=== PATIENT | male | born 1975 | race Caucasian/White ===

== ENCOUNTER 2016-08-20 23:20 | Emergency (ER) | payer OTHER ==
[~2016-08-20] VITALS: Ht 176.5 cm; Wt 74.8 kg
[~2016-08-20 23:20] MED LIST: /PANT40TA OR; /TAMS4CA OR; ACET65TA OR; KETO-28 OR; LEVA500T OR; TRAM50TA2 OR; TYLENOL #3 OR; ZOFR8TAB OR
[2016-08-21] MEDS ORDERED: ASPIRIN 325 MG TAB PO ONE
[2016-08-21 00:18] LABS: BASO % 0.5 % (0.0-1.0); EOS # 0.3 K/mm3 (0.0-0.50); EOS % 4.5 % (0.0-3.0); LARGE UNSTAINED CELL # 0.1 K/mm3 (0.0-0.4); LARGE UNSTAINED CELL % 1.9 % (0.0-4.0); LYMPH # 2.9 K/mm3 (1.5-4.5); LYMPH % 39.9 % (24.0-44.0); MEAN CORPUSCULAR HEMOGLOBIN 31.5 pg (27.0-33.0); MEAN CORPUSCULAR HGB CONC 33.8 g/dl (32.0-36.5); MEAN CORPUSCULAR VOLUME 93.1 fl (80.0-96.0); MONO # 0.4 K/mm3 (0.0-0.8); NEUTROPHILS # 3.3 K/mm3 (1.8-7.7); NEUTROPHILS % 47.2 % (36.0-66.0); PLATELET COUNT, AUTOMATED 211 k/mm3 (150-450); RED CELL DISTRIBUTION WIDTH 12.2 % (11.5-14.5); WHITE BLOOD COUNT 6.9 K/mm3 (4.0-10.0)
[2016-08-21 00:23] LABS: INR 1.17
[2016-08-21 00:40] LABS: ANION GAP 6 MEQ/L (8-16); BLOOD UREA NITROGEN 12 MG/DL (7-18); CALCIUM LEVEL 8.7 MG/DL (8.5-10.1); CARBON DIOXIDE LEVEL 27 MEQ/L (21-32); CHLORIDE LEVEL 107 MEQ/L (98-107); CREATININE FOR GFR 1.14 MG/DL (0.70-1.30); GLOMERULAR FILTRATION RATE > 60.0 (>60); GLUCOSE, FASTING 81 MG/DL (70-105); POTASSIUM SERUM 3.8 MEQ/L (3.5-5.1); SODIUM LEVEL 140 MEQ/L (136-145)
[2016-08-21] MEDS ORDERED: ISOVUE-370 76% 100ML VIAL (Q9967) As Ordered ONE (01:00)
--- NOTE | 2016-08-21 01:30 | REPUSA ---
CLINICAL HISTORY: Dyspnea, exclude PE. TECHNIQUE: Multiple incremental axial, coronal and oblique images are obtained from the thoracic inle t to the upper abdomen. Intravenous contrast material was administered as per pulmonary embolism prot ocol. COMMENTS: Mild centrilobular emphysema. There is excellent opacification of pulmonary arterial system without evidence for pulmonary embolism . Aorta is of normal caliber without evidence for dissection or aneurysm. There is no evidence of pleural or parenchymal mass. There are no pleural effusions. There is no evid ence of hilar or mediastinal lymphadenopathy. The heart and great vessels are within normal limits. Images of the upper abdomen demonstrate no evidence of adrenal mass. The bony structures are free of lytic or blastic lesions. Multilevel degenerative changes are seen in volving the visualized thoracolumbar spine. Scattered calcifications are seen involving the aorta and major branches compatible with atherosclero sis. IMPRESSION: No evidence for pulmonary embolism. Mild centrilobular emphysema. Thank you for your kind referral of this patient.
[2016-08-21] MEDS ORDERED: KETO10TAB PO (04:37)
[2016-08-21 04:42] VITALS: BP 104/55
--- NOTE | 2016-08-22 07:12 | ECGEPIP ---
Stationary ECG Study [facility] - ED Test Date: 2016-08-21 Pat Name: HAYDE CAMARGO Department: Room: - Gender: M Science Manager: ran : 1975 Requested By: LYUDMILA COLE Order Number: [id number] Reading MD: Mirna Price Measurements Intervals [place] Rate: 49 P: 80 MT: 175 QRS: 73 QRSD: 105 T: 53 QT: 401 QTc: 363 Interpretive Statements SINUS BRADYCARDIA WITH SINUS ARRHYTHMIA SIMILAR 03/17/14 Electronically Signed On 08-22-2016 7:12:27 EDT by Mirna Price
--- NOTE | 2016-08-22 07:13 | ECGEPIP ---
Stationary ECG Study [facility] - ED Test Date: 2016-08-21 Pat Name: HAYDE CAMARGO Department: Room: - Gender: M Financial Services Rep: fortino : 1975 Requested By: LYUDMILA COLE Order Number: [id number] Reading MD: Mirna Price Measurements Intervals [place] Rate: 51 P: 76 PA: 176 QRS: 85 QRSD: 108 T: 65 QT: 400 QTc: 370 Interpretive Statements SINUS BRADYCARDIA SIMILAR 08/21/16 Electronically Signed On 08-22-2016 7:12:59 EDT by Mirna Price
== END 2016-08-21 04:52 | disposition home or self-care (01) ==
LOC: M ED 08-21 01:02
DX: R07.89 Other chest pain (principal)
CPT/HCPCS: 71275; 80048; 82550; 82553; 85025; 85610; 85730; 93005; 99285; Q9967

== ENCOUNTER 2016-10-23 22:03 | Emergency (ER) | payer OTHER ==
[~2016-10-23] VITALS: Ht 175.3 cm; Wt 74.8 kg
[~2016-10-23 22:03] MED LIST changes: +KETO10TAB PO
[2016-10-23 22:04] VITALS: BP 125/86
[2016-10-24] MEDS ORDERED: IBUPROFEN 600 MG TAB PO ONE (00:30)
[2016-10-24] MEDS ORDERED: IBUP600T26 PO (00:31)
--- NOTE | 2016-10-24 07:51 | REP ---
Clinical: Trauma. Technique: AP, lateral, bilateral oblique views of the right hand. Comparison: 10/25/2014. Findings: Old healed fractures of the fourth and fifth metacarpal bones appreciated. Acute overlying soft tissue swelling is identified without obvious fracture or dislocation. Remainder examination demonstrates age-related changes. Impression: Soft tissue swelling over the fourth and fifth metatarsal regions. Old fractures involving the fourth and fifth metatarsals without evidence for acute fracture. Signed by Martin Banks MD 10/24/2016 07:42 A
== END 2016-10-24 00:46 | disposition home or self-care (01) ==
LOC: M ED 22:52
DX: S60.221A Contusion of right hand, initial encounter (principal); W22.8XXA Striking against or struck by other objects, initial encounter; Y92.410 Unspecified street and highway as the place of occurrence of the external cause; Y93.9 Activity, unspecified; Y99.9 Unspecified external cause status; F17.200 Nicotine dependence, unspecified, uncomplicated

== ENCOUNTER 2016-12-29 17:20 | Emergency (ER) | payer OTHER ==
[~2016-12-29] VITALS: Ht 175.3 cm; Wt 75.0 kg
[2016-12-29 17:20] VITALS: BP 117/68
[~2016-12-29 17:20] MED LIST changes: +IBUP-1022 PO
[2016-12-29] MEDS ORDERED: ALBU17IN INH (17:26)
[2016-12-29] MEDS ORDERED: ALBU83IN INH (17:26)
[2016-12-29] MEDS ORDERED: CLEO300C2 PO (17:43)
[2016-12-29] MEDS ORDERED: IBUP-1022 PO (17:43)
[2017-04-08] MEDS ORDERED: OMEP40CA2 PO (15:11)
[2017-04-08] MEDS ORDERED: MILKSUS PO (20:03)
== END 2016-12-29 17:56 | disposition home or self-care (01) ==
LOC: M ED 17:20
DX: H60.01 Abscess of right external ear (principal); J45.909 Unspecified asthma, uncomplicated; F17.200 Nicotine dependence, unspecified, uncomplicated

== ENCOUNTER → 2017-01-04 | Outpatient (CLI) | payer OTHER ==
[~2017-01-04] MED LIST changes: +ALBU17IN INH; +ALBU83IN INH; +CLEO300C2 PO; +MILKSUS PO; +OMEP40CA2 PO
[2017-01-04 11:34] LABS: MEAN CORPUSCULAR HEMOGLOBIN 32.1 pg (27.0-33.0); MEAN CORPUSCULAR HGB CONC 34.2 g/dl (32.0-36.5); MEAN CORPUSCULAR VOLUME 93.9 fl (80.0-96.0); RED CELL DISTRIBUTION WIDTH 12.7 % (11.5-14.5); WHITE BLOOD COUNT 11.4 K/mm3 (4.0-10.0)
[2017-01-04 11:56] LABS: ALBUMIN 3.9 GM/DL (3.2-5.2); ALBUMIN/GLOBULIN RATIO 1.34 (1.00-1.93); ALKALINE PHOSPHATASE 73 U/L (45-117); ALT/SGPT 17 U/L (12-78); ANION GAP 9 MEQ/L (8-16); AST/SGOT 11 U/L (15-37); BILIRUBIN,TOTAL 1.1 MG/DL (0.2-1.0); BLOOD UREA NITROGEN 22 MG/DL (7-18); CALCIUM LEVEL 8.9 MG/DL (8.5-10.1); CARBON DIOXIDE LEVEL 26 MEQ/L (21-32); CHLORIDE LEVEL 110 MEQ/L (98-107); CHOLESTEROL LEVEL 148 MG/DL (<200); CREATININE FOR GFR 1.09 MG/DL (0.70-1.30); GLOMERULAR FILTRATION RATE > 60.0 (>60); GLUCOSE, FASTING 84 MG/DL (70-105); POTASSIUM SERUM 4.2 MEQ/L (3.5-5.1); SODIUM LEVEL 145 MEQ/L (136-145); TOTAL PROTEIN 6.8 GM/DL (6.4-8.2); TRIGLYCERIDES LEVEL 55 MG/DL (<150)
--- NOTE | 2017-01-04 12:22 | REP ---
REASON: COPD. COMPARISON: Multiple, latest 11/25/2014. FINDINGS: The superior mediastinal structures are midline. The cardiac silhouette is unremarkable in size, shape, and position. The diaphragmatic surfaces of the lungs are regular, and the costophrenic angles are clear. The pulmonary hanson are clear. The imaged osseous structures are intact. IMPRESSION: There is no acute cardiopulmonary disease. No change from the prior exam. Signed by Scott Juarez DO 01/04/2017 01:58 P
--- NOTE | 2017-01-04 13:02 | ECGEPIP ---
Stationary ECG Study [facility] Test Date: 2017-01-04 Pat Name: HAYDE CAMARGO Department: Room: - Gender: M Risk Modeler: : 1975 Requested By: Denzel Kaba Order Number: [id number] Reading MD: Wes Simms Measurements Intervals [place] Rate: 50 P: 80 AL: 184 QRS: 79 QRSD: 102 T: 65 QT: 414 QTc: 379 Interpretive Statements SINUS BRADYCARDIA WITH SINUS ARRHYTHMIA Within normal limits for age Electronically Signed On 01-04-2017 13:02:27 EDT by Wes Simms
== END ==
LOC: M LAB 10:27
PROVIDERS: ATTEND Family Medicine
DX: J44.9 Chronic obstructive pulmonary disease, unspecified (principal)

== ENCOUNTER → 2017-02-15 | Outpatient (CLI) | payer OTHER ==
[~2017-02-15] MED LIST changes: +GASTROGRAFIN SOLUTION 30ML (Q9963) As Ordered ONE; +ISOVUE-370 76% 100ML VIAL (Q9967) As Ordered ONE
[2017-02-15 14:33] LABS: MEAN CORPUSCULAR HEMOGLOBIN 32.5 pg (27.0-33.0); MEAN CORPUSCULAR HGB CONC 34.4 g/dl (32.0-36.5); MEAN CORPUSCULAR VOLUME 94.5 fl (80.0-96.0); RED CELL DISTRIBUTION WIDTH 12.7 % (11.5-14.5); WHITE BLOOD COUNT 5.7 K/mm3 (4.0-10.0)
[2017-02-15 14:47] LABS: ALBUMIN/GLOBULIN RATIO 1.48 (1.00-1.93); ALKALINE PHOSPHATASE 79 U/L (45-117); ALT/SGPT 19 U/L (12-78); ANION GAP 6 MEQ/L (8-16); AST/SGOT 15 U/L (15-37); BILIRUBIN,TOTAL 0.6 MG/DL (0.2-1.0); BLOOD UREA NITROGEN 16 MG/DL (7-18); CALCIUM LEVEL 8.6 MG/DL (8.5-10.1); CARBON DIOXIDE LEVEL 29 MEQ/L (21-32); CHLORIDE LEVEL 109 MEQ/L (98-107); CREATININE FOR GFR 1.06 MG/DL (0.70-1.30); GLOMERULAR FILTRATION RATE > 60.0 (>60); GLUCOSE, FASTING 89 MG/DL (70-105); POTASSIUM SERUM 4.7 MEQ/L (3.5-5.1); SODIUM LEVEL 144 MEQ/L (136-145); TOTAL PROTEIN 6.7 GM/DL (6.4-8.2)
--- NOTE | 2017-02-15 15:33 | REP ---
Clinical: Epigastric pain/mass. Technique: Axial contrast enhanced images from the lung bases to the pubic symphysis using oral and 100 ml Isovue 370 intravenous contrast material with precontrast images of the abdomen as well as coronal and sagittal re-formations. Comparison: 05/20/2011. Findings: Lung bases are clear. Visualized heart and pericardium normal. Liver, spleen, pancreas, gallbladder, bilateral adrenal glands and kidneys are normal. The previously noted intrarenal calculi are no longer identified. The enteric system including gastroesophageal junction, stomach, small and large bowel is unremarkable and without obstruction or acute inflammatory process and no obvious mass lesion. Normal terminal ileum and appendix identified in the right lower quadrant. Scattered colonic diverticula suggested without acute diverticulitis. Pelvis demonstrates normal bladder and age appropriate prostate/seminal vesicles. No ascites. No adenopathy. No free air. Vasculature appears normal. Musculoskeletal structures are intact. Impression: Normal contrast enhanced CT of the abdomen and pelvis. No ascites, adenopathy, or obvious mass lesion appreciated. Signed by Martin Banks MD 02/15/2017 03:24 P
== END ==
LOC: M LAB 13:35 → M RAD 13:35
PROVIDERS: ATTEND Family Medicine
DX: R10.9 Unspecified abdominal pain (principal)
CPT/HCPCS: 36415; 74178; 80053; 84443; 85027; Q9963; Q9967

== ENCOUNTER 2017-06-14 12:21 | Emergency (ER) | payer OTHER ==
[2017-06-14] MEDS: NS 1,000 ML IV ×2 (12:46)
[2017-06-14 12:54] LABS: BASO # 0.1 10^3/uL (0.0-0.2); BASO % 0.6 % (0.0-1.0); EOS # 0.3 10^3/uL (0.0-0.50); EOS % 3.5 % (0.0-3.0); HEMATOCRIT 41.9 % (42.0-52.0); HEMOGLOBIN 14.8 g/dl (14.0-18.0); IMMATURE GRANULOCYTE % 0.4 % (0-0); LYMPH # 3.7 10^3/uL (1.5-4.5); LYMPH % 43.5 % (24.0-44.0); MEAN CORPUSCULAR HEMOGLOBIN 31.6 pg (27.0-33.0); MEAN CORPUSCULAR HGB CONC 35.3 g/dl (32.0-36.5); MEAN CORPUSCULAR VOLUME 89.3 fl (80.0-96.0); MONO # 0.6 10^3/uL (0.0-0.8); MONO % 6.9 % (0.0-5.0); NEUTROPHILS # 3.8 10^3/uL (1.8-7.7); NEUTROPHILS % 45.1 % (36.0-66.0); PLATELET COUNT, AUTOMATED 264 10^3/uL (150-450); RED BLOOD COUNT 4.69 10^6/uL (4.30-6.10); RED CELL DISTRIBUTION WIDTH 12.4 % (11.5-14.5); WHITE BLOOD COUNT 8.4 10^3/uL (4.0-10.0)
[2017-06-14] MEDS: ONDANSETRON 4MG/2ML VIAL (J2405) IV ×2 (12:54)
[2017-06-14 13:10] LABS: INR 0.94; PROTHROMBIN TIME 12.6 SECONDS (12.4-14.5)
[2017-06-14 13:17] LABS: CPK CREATINE PHOSPHOKINASE 284 U/L (39-308); ETHYL ALCOHOL (ETHANOL) < 0.003 % (0.000-0.010); TROPONIN I < 0.02 NG/ML (< 0.10)
[2017-06-14 13:21] LABS: ALBUMIN 3.9 GM/DL (3.2-5.2); ALKALINE PHOSPHATASE 78 U/L (45-117); ALT/SGPT 29 U/L (12-78); ANION GAP 8 MEQ/L (8-16); AST/SGOT 24 U/L (7-37); BILIRUBIN,DIRECT 0.1 MG/DL (0.0-0.2); BILIRUBIN,TOTAL 0.5 MG/DL (0.2-1.0); BLOOD UREA NITROGEN 14 MG/DL (7-18); CALCIUM LEVEL 8.8 MG/DL (8.5-10.1); CARBON DIOXIDE LEVEL 23 MEQ/L (21-32); CHLORIDE LEVEL 111 MEQ/L (98-107); CREATININE FOR GFR 1.04 MG/DL (0.70-1.30); GLOMERULAR FILTRATION RATE > 60.0 (>60); GLUCOSE, FASTING 111 MG/DL (70-105); LIPASE 195 U/L (73-393); SODIUM LEVEL 142 MEQ/L (136-145); TOTAL PROTEIN 6.9 GM/DL (6.4-8.2)
[2017-06-14] MEDS: METOCLOPRAMIDE INJ 10MG/2ML VIAL (J2765) IV ×2 (14:38)
[2017-06-14] MEDS: PANTOPRAZOLE 40MG INJ (PROTONIX) (C9113) IV ×2 (15:15)
[2017-06-14] MEDS: dexameTHASONE 20 MG/5 ML VIAL (J1100) IV ×2 (15:18)
[2017-06-14 15:37] LABS: KETONE, URINE AUTO RFX NEGATIVE (NEGATIVE); LEUKOCYTE ESTERASE UR AUTO RFX NEGATIVE (NEGATIVE); MUCUS, URINE RFX SMALL (NEGATIVE); NITRITE, URINE AUTO RFX NEGATIVE (NEGATIVE); RBC, URINE AUTO RFX 0 /HPF (0-3); SPECIFIC GRAVITY UR AUTO RFX 1.009 (1.002-1.035); SQUAM EPITHELIAL CELL UR AURFX 0 /HPF (0-6); WBC, URINE AUTO RFX 0 /HPF (0-3)
[2017-06-14 19:06] LABS: AMPHETAMINES LEVEL URINE NEGATIVE (NEGATIVE); BARBITURATES URINE NEGATIVE (NEGATIVE); BENZODIAZEPINES URINE NEGATIVE (NEGATIVE); CANNABINOIDS URINE POSITIVE (NEGATIVE); COCAINE METABOLITE URINE NEGATIVE (NEGATIVE); METHADONE URINE NEGATIVE (NEGATIVE); OPIATES URINE NEGATIVE (NEGATIVE); PHENCYCLIDINE URINE NEGATIVE (NEGATIVE)
== END 2017-06-14 20:22 | disposition short-term general hospital (02) ==
LOC: M ED 12:21
DX: I61.4 Nontraumatic intracerebral hemorrhage in cerebellum (principal); F41.9 Anxiety disorder, unspecified; R11.10 Vomiting, unspecified; R10.32 Left lower quadrant pain; Z79.899 Other long term (current) drug therapy
CPT/HCPCS: C9113

== ENCOUNTER → 2017-06-14 | Day surgery (SDC) | payer OTHER ==
[~2017-06-14] MED LIST changes: -/PANT40TA OR; -/TAMS4CA OR; -ACET65TA OR; -ALBU17IN INH; -ALBU83IN INH; -CLEO300C2 PO; -GASTROGRAFIN SOLUTION 30ML (Q9963) As Ordered ONE; -IBUP-1022 PO; -ISOVUE-370 76% 100ML VIAL (Q9967) As Ordered ONE; -KETO-28 OR; -KETO10TAB PO; -LEVA500T OR; -MILKSUS PO; -OMEP40CA2 PO; +PROHANCE 279.3MG/ML 15ML VIAL (A9576) As Ordered; -TRAM50TA2 OR; -TYLENOL #3 OR; -ZOFR8TAB OR
== END ==
LOC: M OPP 11:45
DX: R10.32 Left lower quadrant pain (principal)

== ENCOUNTER 2017-06-19 18:33 | Emergency (ER) | payer OTHER ==
[2017-06-19] MEDS: NS 1,000 ML IV (19:57)
[2017-06-19] MEDS: ONDANSETRON 4MG/2ML VIAL (J2405) IV (19:57)
[2017-06-19] MEDS: fentaNYL 100 MCG/2 ML INJECTION (J3010) IV (19:57)
[2017-06-19 20:39] LABS: BASO % 0.2 % (0.0-1.0); EOS # 0.1 10^3/uL (0.0-0.50); EOS % 0.5 % (0.0-3.0); HEMATOCRIT 40.8 % (42.0-52.0); HEMOGLOBIN 14.7 g/dl (14.0-18.0); IMMATURE GRANULOCYTE # 0.1 10^3/uL (0-0); IMMATURE GRANULOCYTE % 0.5 % (0-0); LYMPH # 1.7 10^3/uL (1.5-4.5); LYMPH % 10.5 % (24.0-44.0); MEAN CORPUSCULAR HEMOGLOBIN 31.5 pg (27.0-33.0); MEAN CORPUSCULAR VOLUME 87.4 fl (80.0-96.0); MONO # 0.8 10^3/uL (0.0-0.8); NEUTROPHILS # 13.8 10^3/uL (1.8-7.7); NEUTROPHILS % 83.3 % (36.0-66.0); PLATELET COUNT, AUTOMATED 310 10^3/uL (150-450); RED BLOOD COUNT 4.67 10^6/uL (4.30-6.10); RED CELL DISTRIBUTION WIDTH 11.9 % (11.5-14.5); WHITE BLOOD COUNT 16.6 10^3/uL (4.0-10.0)
[2017-06-19 20:50] LABS: ANION GAP 9 MEQ/L (8-16); BLOOD UREA NITROGEN 13 MG/DL (7-18); CALCIUM LEVEL 8.9 MG/DL (8.5-10.1); CARBON DIOXIDE LEVEL 25 MEQ/L (21-32); CHLORIDE LEVEL 105 MEQ/L (98-107); CREATININE FOR GFR 1.22 MG/DL (0.70-1.30); GLOMERULAR FILTRATION RATE > 60.0 (>60); GLUCOSE, FASTING 149 MG/DL (70-105); POTASSIUM SERUM 3.2 MEQ/L (3.5-5.1); SODIUM LEVEL 139 MEQ/L (136-145)
[2017-06-19] MEDS: ONDANSETRON 4 MG ORAL DISINTEGRATING TAB (S0181) PO (21:25)
[2017-06-19] MEDS: OXYCODONE/APAP 5MG/325MG(BULK FOR ED) 1 TABLET PO (21:25)
== END 2017-06-19 21:28 | disposition home or self-care (01) ==
LOC: M ED 18:33
DX: I61.4 Nontraumatic intracerebral hemorrhage in cerebellum (principal); R11.2 Nausea with vomiting, unspecified; R42 Dizziness and giddiness; J44.9 Chronic obstructive pulmonary disease, unspecified; J45.909 Unspecified asthma, uncomplicated; F17.200 Nicotine dependence, unspecified, uncomplicated; Z79.899 Other long term (current) drug therapy
CPT/HCPCS: J2405

== ENCOUNTER 2017-06-20 19:08 | Emergency (ER) | payer OTHER ==
[2017-06-20] MEDS: PROMETHAZINE INJ 25 MG/ML VIAL (J2550) IV (19:45)
[2017-06-20] MEDS: NS 1,000 ML IV (19:45)
[2017-06-20] MEDS ORDERED: ISOVUE-370 76% 100ML VIAL (Q9967) As Ordered (19:50)
[2017-06-20 20:18] LABS: BASO % 0.3 % (0.0-1.0); EOS # 0.1 10^3/uL (0.0-0.50); EOS % 0.8 % (0.0-3.0); HEMATOCRIT 43.5 % (42.0-52.0); HEMOGLOBIN 15.4 g/dl (14.0-18.0); IMMATURE GRANULOCYTE # 0.1 10^3/uL (0-0); IMMATURE GRANULOCYTE % 0.5 % (0-0); LYMPH # 1.6 10^3/uL (1.5-4.5); LYMPH % 17.4 % (24.0-44.0); MEAN CORPUSCULAR HEMOGLOBIN 31.2 pg (27.0-33.0); MEAN CORPUSCULAR HGB CONC 35.4 g/dl (32.0-36.5); MEAN CORPUSCULAR VOLUME 88.2 fl (80.0-96.0); MONO # 0.5 10^3/uL (0.0-0.8); MONO % 4.9 % (0.0-5.0); NEUTROPHILS # 7.2 10^3/uL (1.8-7.7); NEUTROPHILS % 76.1 % (36.0-66.0); PLATELET COUNT, AUTOMATED 299 10^3/uL (150-450); RED BLOOD COUNT 4.93 10^6/uL (4.30-6.10); WHITE BLOOD COUNT 9.4 10^3/uL (4.0-10.0)
[2017-06-20 20:35] LABS: LACTIC ACID SEPSIS PROTOCOL 1.4 MMOL/L (0.4-2.0)
[2017-06-20 20:41] LABS: ALBUMIN 4.5 GM/DL (3.2-5.2); ALBUMIN/GLOBULIN RATIO 1.45 (1.00-1.93); ALKALINE PHOSPHATASE 86 U/L (45-117); ALT/SGPT 30 U/L (12-78); ANION GAP 8 MEQ/L (8-16); AST/SGOT 18 U/L (7-37); BILIRUBIN,DIRECT 0.2 MG/DL (0.0-0.2); BILIRUBIN,TOTAL 0.8 MG/DL (0.2-1.0); BLOOD UREA NITROGEN 12 MG/DL (7-18); CALCIUM LEVEL 9.2 MG/DL (8.5-10.1); CARBON DIOXIDE LEVEL 27 MEQ/L (21-32); CHLORIDE LEVEL 105 MEQ/L (98-107); GLOMERULAR FILTRATION RATE > 60.0 (>60); GLUCOSE, FASTING 100 MG/DL (70-105); LIPASE 104 U/L (73-393); POTASSIUM SERUM 3.7 MEQ/L (3.5-5.1); SODIUM LEVEL 140 MEQ/L (136-145); TOTAL PROTEIN 7.6 GM/DL (6.4-8.2)
[2017-06-20] MEDS: PANTOPRAZOLE 40MG INJ (PROTONIX) (C9113) IV (21:55)
== END 2017-06-20 22:19 | disposition home or self-care (01) ==
LOC: M ED 19:08
DX: R11.2 Nausea with vomiting, unspecified (principal); J45.909 Unspecified asthma, uncomplicated; Z87.19 Personal history of other diseases of the digestive system; R45.4 Irritability and anger; I67.1 Cerebral aneurysm, nonruptured; F17.200 Nicotine dependence, unspecified, uncomplicated; Z79.899 Other long term (current) drug therapy
CPT/HCPCS: C9113

== ENCOUNTER → 2017-07-22 | Outpatient (CLI) | payer OTHER | LOC: M RAD 14:47 | DX: J44.9 Chronic obstructive pulmonary disease, unspecified (principal) | CPT/HCPCS: 71046 ==

== ENCOUNTER → 2017-07-29 | Outpatient (CLI) | payer OTHER ==
[~2017-07-29] MED LIST changes: +PROHANCE 279.3MG/ML 5ML VIAL (A9576) As Ordered
== END ==
LOC: M RAD 13:50
DX: G93.9 Disorder of brain, unspecified (principal); I61.4 Nontraumatic intracerebral hemorrhage in cerebellum
CPT/HCPCS: A9576

== ENCOUNTER 2017-09-05 13:18 | Outpatient (RCR) | payer OTHER | END 2017-09-30 | LOC: M PT 13:18 → M ST 09-19 14:18 → M PT 13:18 | DX: Z51.89 Encounter for other specified aftercare (principal); R47.89 Other speech disturbances ==

== ENCOUNTER 2017-09-25 19:13 | Emergency (ER) | payer OTHER ==
[2017-09-25 20:24] LABS: HEMATOCRIT 38.9 % (42.0-52.0); HEMOGLOBIN 13.3 g/dl (13.5-17.5); MEAN CORPUSCULAR HEMOGLOBIN 31.4 pg (27.0-33.0); MEAN CORPUSCULAR HGB CONC 34.2 g/dl (32.0-36.5); PLATELET COUNT, AUTOMATED 245 10^3/uL (150-450); RED BLOOD COUNT 4.23 10^6/uL (4.30-6.10); RED CELL DISTRIBUTION WIDTH 11.9 % (11.5-14.5); WHITE BLOOD COUNT 5.4 10^3/uL (4.0-10.0)
[2017-09-25 20:43] LABS: ERYTHROCYTE SEDIMENTATION RATE 5 mm/hr (0-15)
[2017-09-25] MEDS ORDERED: ISOVUE-370 76% 100ML VIAL (Q9967) As Ordered (20:57)
[2017-09-25 20:59] LABS: ANION GAP 4 MEQ/L (8-16); BLOOD UREA NITROGEN 12 MG/DL (7-18); C REACTIVE PROTEIN QUANTITATIV < 0.30 MG/DL (0.00-0.30); CALCIUM LEVEL 8.6 MG/DL (8.5-10.1); CARBON DIOXIDE LEVEL 30 MEQ/L (21-32); CHLORIDE LEVEL 107 MEQ/L (98-107); CREATININE FOR GFR 1.03 MG/DL (0.70-1.30); GLOMERULAR FILTRATION RATE > 60.0 (>60); GLUCOSE, FASTING 95 MG/DL (70-100); POTASSIUM SERUM 3.3 MEQ/L (3.5-5.1); SODIUM LEVEL 141 MEQ/L (136-145)
[2017-09-25] MEDS: MORPHINE 4 MG/ML 1ML VIAL/SYRINGE (J2270) IV (21:06)
== END 2017-09-25 23:56 | disposition short-term general hospital (02) ==
LOC: M ED 19:13
DX: T81.4XXA Infection following a procedure, initial encounter (principal); Y92.9 Unspecified place or not applicable; Y93.9 Activity, unspecified; J45.909 Unspecified asthma, uncomplicated; J44.9 Chronic obstructive pulmonary disease, unspecified; F17.200 Nicotine dependence, unspecified, uncomplicated; Z79.899 Other long term (current) drug therapy
CPT/HCPCS: J2270

== ENCOUNTER → 2017-10-07 | Outpatient (CLI) | payer OTHER ==
[~2017-10-07] MED LIST changes: -PROHANCE 279.3MG/ML 5ML VIAL (A9576) As Ordered
== END ==
LOC: M RAD 06:51
DX: G93.9 Disorder of brain, unspecified (principal); G96.19 Other disorders of meninges, not elsewhere classified
CPT/HCPCS: A9576

== ENCOUNTER 2017-10-10 22:01 | Emergency (ER) | payer OTHER ==
[2017-10-10] MEDS: ONDANSETRON 4MG/2ML VIAL (J2405) IV (23:06)
[2017-10-10 23:07] LABS: BASO % 0.4 % (0.0-1.0); EOS # 0.2 10^3/uL (0.0-0.50); HEMOGLOBIN 13.7 g/dl (13.5-17.5); IMMATURE GRANULOCYTE % 0.2 % (0-3.0); LYMPH # 3.4 10^3/uL (1.5-4.5); MEAN CORPUSCULAR HEMOGLOBIN 31.1 pg (27.0-33.0); MEAN CORPUSCULAR HGB CONC 34.3 g/dl (32.0-36.5); MEAN CORPUSCULAR VOLUME 90.7 fl (80.0-96.0); MONO # 0.6 10^3/uL (0.0-0.8); NEUTROPHILS # 4.9 10^3/uL (1.8-7.7); NEUTROPHILS % 53.4 % (36.0-66.0); PLATELET COUNT, AUTOMATED 334 10^3/uL (150-450); RED BLOOD COUNT 4.41 10^6/uL (4.30-6.10); RED CELL DISTRIBUTION WIDTH 11.9 % (11.5-14.5); WHITE BLOOD COUNT 9.2 10^3/uL (4.0-10.0)
[2017-10-10 23:17] LABS: ALBUMIN 4.5 GM/DL (3.2-5.2); ALBUMIN/GLOBULIN RATIO 1.32 (1.00-1.93); ALKALINE PHOSPHATASE 80 U/L (45-117); ALT/SGPT 13 U/L (12-78); ANION GAP 7 MEQ/L (8-16); AST/SGOT 9 U/L (7-37); BILIRUBIN,DIRECT 0.1 MG/DL (0.0-0.2); BILIRUBIN,TOTAL 0.7 MG/DL (0.2-1.0); BLOOD UREA NITROGEN 12 MG/DL (7-18); CALCIUM LEVEL 8.9 MG/DL (8.5-10.1); CARBON DIOXIDE LEVEL 29 MEQ/L (21-32); CHLORIDE LEVEL 104 MEQ/L (98-107); CREATININE FOR GFR 1.18 MG/DL (0.70-1.30); GLOMERULAR FILTRATION RATE > 60.0 (>60); GLUCOSE, FASTING 112 MG/DL (70-100); LIPASE 152 U/L (73-393); POTASSIUM SERUM 3.4 MEQ/L (3.5-5.1); SODIUM LEVEL 140 MEQ/L (136-145); TOTAL PROTEIN 7.9 GM/DL (6.4-8.2)
[2017-10-10] MEDS: MORPHINE 4 MG/ML 1ML VIAL/SYRINGE (J2270) IV (23:48)
[2017-10-10] MEDS: NS 1,000 ML IV (23:52)
[2017-10-11] MEDS: METOCLOPRAMIDE INJ 10MG/2ML VIAL (J2765) IV (00:04)
== END 2017-10-11 01:10 | disposition home or self-care (01) ==
LOC: M ED 22:01
DX: R11.2 Nausea with vomiting, unspecified (principal); K21.9 Gastro-esophageal reflux disease without esophagitis; Z79.899 Other long term (current) drug therapy; F17.210 Nicotine dependence, cigarettes, uncomplicated
CPT/HCPCS: J2270

== ENCOUNTER 2017-10-18 16:37 | Emergency (ER) | payer OTHER ==
[2017-10-18] MEDS: METOCLOPRAMIDE INJ 10MG/2ML VIAL (J2765) IV (17:45)
[2017-10-18] MEDS: NS 1,000 ML IV ×3 (17:45→19:15)
[2017-10-18 18:35] LABS: BASO % 0.3 % (0.0-1.0); EOS # 0.1 10^3/uL (0.0-0.50); HEMATOCRIT 41.2 % (42.0-52.0); HEMOGLOBIN 14.4 g/dl (13.5-17.5); IMMATURE GRANULOCYTE % 0.3 % (0-3.0); LYMPH # 1.8 10^3/uL (1.5-4.5); LYMPH % 27.4 % (24.0-44.0); MEAN CORPUSCULAR HEMOGLOBIN 31.2 pg (27.0-33.0); MEAN CORPUSCULAR VOLUME 89.2 fl (80.0-96.0); MONO # 0.5 10^3/uL (0.0-0.8); MONO % 7.9 % (0.0-5.0); NEUTROPHILS % 62.1 % (36.0-66.0); PLATELET COUNT, AUTOMATED 301 10^3/uL (150-450); RED BLOOD COUNT 4.62 10^6/uL (4.30-6.10); WHITE BLOOD COUNT 6.5 10^3/uL (4.0-10.0)
[2017-10-18 19:00] LABS: ALBUMIN 4.5 GM/DL (3.2-5.2); ALBUMIN/GLOBULIN RATIO 1.29 (1.00-1.93); ALKALINE PHOSPHATASE 86 U/L (45-117); ALT/SGPT 17 U/L (12-78); ANION GAP 6 MEQ/L (8-16); AST/SGOT 8 U/L (7-37); BILIRUBIN,DIRECT 0.2 MG/DL (0.0-0.2); BILIRUBIN,TOTAL 1.2 MG/DL (0.2-1.0); BLOOD UREA NITROGEN 11 MG/DL (7-18); CALCIUM LEVEL 9.3 MG/DL (8.5-10.1); CARBON DIOXIDE LEVEL 28 MEQ/L (21-32); CHLORIDE LEVEL 107 MEQ/L (98-107); CPK CREATINE PHOSPHOKINASE 127 U/L (39-308); CREATININE FOR GFR 0.93 MG/DL (0.70-1.30); GLOMERULAR FILTRATION RATE > 60.0 (>60); GLUCOSE, FASTING 94 MG/DL (70-100); POTASSIUM SERUM 3.6 MEQ/L (3.5-5.1); SODIUM LEVEL 141 MEQ/L (136-145); TROPONIN I < 0.02 NG/ML (< 0.10)
[2017-10-18 19:04] LABS: CK-MB VALUE MASS < 1.0 NG/ML (<3.6); MB/CK RELATIVE INDEX 0.78 (< OR =4)
== END 2017-10-18 20:45 | disposition home or self-care (01) ==
LOC: M ED 16:37
DX: G96.19 Other disorders of meninges, not elsewhere classified (principal); R11.2 Nausea with vomiting, unspecified; G96.0 Cerebrospinal fluid leak; J43.9 Emphysema, unspecified; R13.10 Dysphagia, unspecified; J45.909 Unspecified asthma, uncomplicated; F17.200 Nicotine dependence, unspecified, uncomplicated; Z79.899 Other long term (current) drug therapy
CPT/HCPCS: 71250

== ENCOUNTER → 2017-11-11 | Outpatient (CLI) | payer OTHER ==
[~2017-11-11] MED LIST changes: +E-Z-GAS II EFFERVESCENT PACKET (SODIUM BICARB./CITRIC ACID/SIMETHICONE) As Ordered; +E-Z-HD 98% w/w 340GM SUSP BTL As Ordered; +E-Z-PAQUE 96% w/w SUSP 176GM BTL As Ordered; -PROHANCE 279.3MG/ML 15ML VIAL (A9576) As Ordered
== END ==
LOC: M RAD 09:54
DX: R13.10 Dysphagia, unspecified (principal); K44.9 Diaphragmatic hernia without obstruction or gangrene; K21.9 Gastro-esophageal reflux disease without esophagitis
CPT/HCPCS: 74220

== ENCOUNTER 2017-11-25 12:45 | Outpatient (RCR) | payer OTHER | END 2017-11-30 | LOC: M ST 12:45 | DX: Z51.89 Encounter for other specified aftercare (principal); J38.3 Other diseases of vocal cords ==

== ENCOUNTER → 2018-01-07 | Outpatient (CLI) | payer OTHER ==
[~2018-01-07] MED LIST changes: -E-Z-GAS II EFFERVESCENT PACKET (SODIUM BICARB./CITRIC ACID/SIMETHICONE) As Ordered; -E-Z-HD 98% w/w 340GM SUSP BTL As Ordered; -E-Z-PAQUE 96% w/w SUSP 176GM BTL As Ordered; +ISOVUE-370 76% 100ML VIAL (Q9967) As Ordered
== END ==
LOC: M RAD 07:46
DX: G96.19 Other disorders of meninges, not elsewhere classified (principal)
CPT/HCPCS: Q9967

== ENCOUNTER 2018-06-10 12:19 | Emergency (ER) | payer OTHER ==
[~2018-06-10] VITALS: Ht 175.3 cm; Wt 70.5 kg
[~2018-06-10 12:19] MED LIST changes: +/PANT40TA OR; +/TAMS4CA OR; +ACET65TA OR; +ALBU17IN INH; +ALBU83IN INH; +ASPI-222 PO; +CLEO300C2 PO; +CYCL10TA PO; +HYDR-3719 PO; +IBUP-1022 PO; +IBUPOTC PO; -ISOVUE-370 76% 100ML VIAL (Q9967) As Ordered; +KETO-28 OR; +KETO10TAB PO; +LEVA500T OR; +MILK120011 PO; +OMEP20CA3 PO; +OMEP40CA2 PO; +PERC5TAB12 PO; +PHEN2SUP PR; +REGL10TA6 PO; +SUCR1SUS PO; +SUCR1TAB56 PO; +TRAM50TA2 OR; +TYLENOL #3 OR; +ZOFR4TAB14 PO; +ZOFR4TAB16 PO; +ZOFR8TAB OR
[2018-06-10] MEDS ORDERED: NS 1,000 ML IV ONE (13:15)
[2018-06-10] MEDS ORDERED: ONDANSETRON 4MG/2ML VIAL (J2405) IV ONE (13:15)
[2018-06-10 13:34] LABS: BASO % 0.4 % (0.0-1.0); EOS # 0.2 10^3/uL (0.0-0.50); EOS % 2.7 % (0.0-3.0); HEMATOCRIT 40.9 % (42.0-52.0); HEMOGLOBIN 13.8 g/dl (13.5-17.5); LYMPH % 28.6 % (24.0-44.0); MEAN CORPUSCULAR HEMOGLOBIN 31.2 pg (27.0-33.0); MEAN CORPUSCULAR HGB CONC 33.7 g/dl (32.0-36.5); MEAN CORPUSCULAR VOLUME 92.3 fl (80.0-96.0); MONO # 0.4 10^3/uL (0.0-0.8); MONO % 5.8 % (0.0-5.0); NEUTROPHILS # 4.4 10^3/uL (1.8-7.7); NEUTROPHILS % 62.2 % (36.0-66.0); PLATELET COUNT, AUTOMATED 243 10^3/uL (150-450); RED BLOOD COUNT 4.43 10^6/uL (4.30-6.10); WHITE BLOOD COUNT 7.1 10^3/uL (4.0-10.0)
[2018-06-10 13:45] LABS: INR 0.98; PARTIAL THROMBOPLASTIN TIME 29.3 SECONDS (25.4-37.6); PROTHROMBIN TIME 13.1 SECONDS (12.1-14.4)
[2018-06-10 14:04] LABS: BLOOD UREA NITROGEN 16 MG/DL (7-18); CARBON DIOXIDE LEVEL 28 MEQ/L (21-32); CHLORIDE LEVEL 107 MEQ/L (98-107); CREATININE FOR GFR 0.98 MG/DL (0.70-1.30); GLOMERULAR FILTRATION RATE > 60.0 (>60); GLUCOSE, FASTING 99 MG/DL (70-100); POTASSIUM SERUM 4.3 MEQ/L (3.5-5.1); SODIUM LEVEL 140 MEQ/L (136-145)
--- NOTE | 2018-06-10 14:10 | REP ---
CT Head without contrast HISTORY: Headache COMPARISON: 10/10/2017 The patient is status post midline suboccipital craniectomy. There is no intraparenchymal hemorrhage, acute infarct, mass or midline shift. The ventricular system is normal in appearance. There is no extra cerebral collection. There is no fracture. The visualized sinuses are clear. IMPRESSION: There is no intracranial lesion. Electronically Signed by Vineet Gallegos MD 06/10/2018 02:02 P
--- NOTE | 2018-06-10 14:16 | REP ---
CT cervical spine without contrast HISTORY: Headache COMPARISON: 11/25/2014 The patient is status post midline suboccipital craniectomy and partial resection of the C1 posterior neural arch. There is no acute fracture or subluxation. Disc bulges are present at the C3-4 and C4-5 levels. A disc bulge with associated osteophyte formation is present at the C5-6 level. There is minimal narrowing of the spinal canal. Uncinate process hypertrophy is present at the C5-6 level. This produces minimal and mild narrowing of the right and left C5 neural foramina, respectively. The remaining neural foramina are patent. The C5-6 intervertebral disc is decreased in height consistent with disc degeneration. There is loss of the normal lordotic curve. IMPRESSION: 1. There is no acute fracture or subluxation. 2. The patient is status post midline suboccipital craniectomy and partial resection of the C1 posterior neural arch. 3. There is cervical spondylosis at the C3-4 through C5-6 levels. There is no significant change compared to the previous study. Electronically Signed by Vineet Gallegos MD 06/10/2018 02:08 P
[2018-06-10] MEDS ORDERED: fentaNYL 100 MCG/2 ML INJECTION (J3010) IV ONE (15:00)
[2018-06-10] MEDS ORDERED: ZOFR4TAB14 PO (15:49)
[2018-06-10] MEDS ORDERED: NORC1TAB4 PO (15:49)
[2018-06-10 16:01] VITALS: BP 102/64
== END 2018-06-10 16:07 | disposition home or self-care (01) ==
LOC: M ED 12:19
DX: G44.209 Tension-type headache, unspecified, not intractable (principal); R11.10 Vomiting, unspecified; Z98.890 Other specified postprocedural states
CPT/HCPCS: 70450; 72125; 80048; 85025; 85610; 85730; 93041; 94760; 96361; 96374; 96375; 99284; J2405; J3010

== ENCOUNTER → 2019-01-01 | Outpatient (CLI) | payer OTHER ==
[~2019-01-01] MED LIST changes: -/PANT40TA OR; -/TAMS4CA OR; +CHAN1PAK11; +FLOM0.4C39 OR; +NORC1TAB7 PO; -OMEP20CA3 PO; +OMEP20CA4 PO; +ONDA-227 OR; +PROT1TAB2 OR; -ZOFR8TAB OR
[2019-01-01 12:56] LABS: BASO % 0.5 % (0.0-1.0); EOS # 0.3 10^3/uL (0.0-0.50); EOS % 5.2 % (0.0-3.0); HEMATOCRIT 40.8 % (42.0-52.0); HEMOGLOBIN 13.7 g/dl (13.5-17.5); LYMPH # 2.1 10^3/uL (1.5-4.5); LYMPH % 36.6 % (24.0-44.0); MEAN CORPUSCULAR HEMOGLOBIN 30.4 pg (27.0-33.0); MEAN CORPUSCULAR HGB CONC 33.6 g/dl (32.0-36.5); MEAN CORPUSCULAR VOLUME 90.7 fl (80.0-96.0); MONO # 0.4 10^3/uL (0.0-0.8); NEUTROPHILS % 51.4 % (36.0-66.0); PLATELET COUNT, AUTOMATED 266 10^3/uL (150-450); WHITE BLOOD COUNT 5.8 10^3/uL (4.0-10.0)
[2019-01-01 14:02] LABS: ALBUMIN 4.3 GM/DL (3.2-5.2); ALT/SGPT 15 U/L (12-78); BILIRUBIN,TOTAL 0.6 MG/DL (0.2-1.0); BLOOD UREA NITROGEN 15 MG/DL (7-18); CALCIUM LEVEL 9.1 MG/DL (8.5-10.1); CARBON DIOXIDE LEVEL 27 MEQ/L (21-32); CHLORIDE LEVEL 108 MEQ/L (98-107); CHOLESTEROL LEVEL 156 MG/DL (<200); CREATININE FOR GFR 1.08 MG/DL (0.70-1.30); FREE T4 1.19 NG/DL (0.76-1.46); GLOMERULAR FILTRATION RATE > 60.0 (>60); GLUCOSE, FASTING 87 MG/DL (70-100); HDL CHOLESTEROL 50 MG/DL (>40); LDL CHOLESTEROL 94 MG/DL (<100); NON-HDL-C 106 MG/DL; POTASSIUM SERUM 4.5 MEQ/L (3.5-5.1); SODIUM LEVEL 139 MEQ/L (136-145); TOTAL 25(OH) VITAMIN D 32.5 NG/ML (30.0-100.0); TOTAL PROTEIN 7.4 GM/DL (6.4-8.2); TRIGLYCERIDES LEVEL 60 MG/DL (<150)
[2019-01-01 14:31] LABS: HEMOGLOBIN A1c 6.2 %
[2019-01-01 15:39] LABS: APPEARANCE, URINE CLEAR (CLEAR); BACTERIA, URINE AUTO NEGATIVE (NEGATIVE); BILIRUBIN, URINE AUTO NEGATIVE (NEGATIVE); BLOOD, URINE BLOOD NEGATIVE (NEGATIVE); COLOR, URINE YELLOW (YELLOW); GLUCOSE, URINE (UA) AUTO NEGATIVE (NEGATIVE); KETONE, URINE AUTO NEGATIVE (NEGATIVE); LEUKOCYTE ESTERASE, URINE AUTO NEGATIVE (NEGATIVE); NITRITE, URINE AUTO NEGATIVE (NEGATIVE); PROTEIN, URINE AUTO NEGATIVE (NEGATIVE); RBC, URINE AUTO 1 /HPF (0-3); SQUAMOUS EPITHELIAL CELL UR AU 0 /HPF (0-6); UROBILINOGEN, URINE AUTO 0.2 mg/dL (0.0-2.0); WBC, URINE AUTO 1 /HPF (0-3)
[2019-01-03 00:06] LABS: Lyme Disease IgG/IgM Antibodie <0.91 ISR (0.00-0.90); Lyme Disease IgM Ab Quantitati <0.80 index (0.00-0.79)
== END ==
LOC: M LAB 11:58
PROVIDERS: ATTEND Family Medicine
DX: Z13.228 Encounter for screening for other metabolic disorders (principal)

== ENCOUNTER → 2019-01-01 | Outpatient (CLI) | payer OTHER ==
[~2019-01-01] MED LIST changes: +PROHANCE 279.3MG/ML 15ML VIAL (A9576) As Ordered ONE
--- NOTE | 2019-01-01 15:30 | REP ---
MRI BRAIN WITHOUT AND WITH IV CONTRAST: HISTORY: Assess cerebellar lesion for recurrence and evaluate pseudomeningocele. Comparison brain MRI study is from October 07, 2017. Comparison CT study is reviewed from June 10, 2018 and September 25, 2017. 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 TECHNIQUE: Axial, coronal, and sagittal imaging planes are utilized for T1 and T2-weighted scans. Sequences include spin-echo, fast spin echo, FLAIR, and diffusion weighted sequences. Gadolinium enhancement dose is 13 mL of intravenous ProHance. MRI FINDINGS: The patient is status post suboccipital craniotomy. The previously noted fluid collection is resolved. There is no evidence of pseudomeningocele at the craniotomy site today. There is some hemosiderin staining along the inferior margin of the left cerebellar hemisphere and posteromedial aspect of the left cerebellar peduncle from patient's previous hematoma. This is unchanged from October 07, 2017 study. There is a developmental venous anomaly with a prominent draining vein again noted in the inferior cerebellar hemisphere laterally. This appears to be unchanged. There is no evidence of new intracranial hemorrhage. Lateral, third, and fourth ventricles remain normal in size and position. No extra-axial fluid collection is seen. No mass or midline shift is observed. Postcontrast study shows a developmental venous anomaly in the left cerebellum to good advantage. No other abnormal intracranial enhancement is appreciated. IMPRESSION: Some residual hemosiderin staining is seen related to the old left cerebellar hemorrhage. The left developmental venous anomaly is again seen unchanged in the left inferior lateral cerebellar hemisphere. Suboccipital craniotomy has been performed. There is no evidence of pseudomeningocele. Otherwise negative. Electronically Signed by Albert Matthews MD 01/01/2019 04:02 P
== END ==
LOC: M RAD 12:04
PROVIDERS: ATTEND Neurological Surgery
DX: Q28.3 Other malformations of cerebral vessels (principal); J38.00 Paralysis of vocal cords and larynx, unspecified
CPT/HCPCS: 70553; A9576

== ENCOUNTER 2019-01-06 20:30 | Emergency (ER) | payer OTHER ==
[~2019-01-06] VITALS: Ht 175.3 cm; Wt 70.5 kg
[~2019-01-06 20:30] MED LIST changes: -ASPI-222 PO; +ASPI-527 PO; -CHAN1PAK11; +OMEP1CAP73 PO; -OMEP20CA4 PO; -OMEP40CA2 PO; +OMEP40CA97 PO; -PROHANCE 279.3MG/ML 15ML VIAL (A9576) As Ordered ONE; +SUCR1ORA PO; -SUCR1SUS PO
[2019-01-06] MEDS ORDERED: CHAN1PAK11 (20:42)
[2019-01-06] MEDS ORDERED: diphenhydrAMINE INJ 50MG/ML VIAL (J1200) IV STA (21:26)
[2019-01-06] MEDS ORDERED: KETOROLAC 30 MG/ML VIAL (J1885) IV ONE (21:30)
[2019-01-06] MEDS ORDERED: NS 1,000 ML IV ONE (21:30)
[2019-01-06] MEDS ORDERED: ONDANSETRON 4MG/2ML VIAL (J2405) IV ONE (21:30)
[2019-01-06 21:59] LABS: BASO % 0.3 % (0.0-1.0); EOS # 0.2 10^3/uL (0.0-0.50); EOS % 1.7 % (0.0-3.0); HEMATOCRIT 39.6 % (42.0-52.0); HEMOGLOBIN 13.1 g/dl (13.5-17.5); LYMPH # 1.4 10^3/uL (1.5-4.5); LYMPH % 15.1 % (24.0-44.0); MEAN CORPUSCULAR HEMOGLOBIN 30.8 pg (27.0-33.0); MEAN CORPUSCULAR HGB CONC 33.1 g/dl (32.0-36.5); MONO # 0.4 10^3/uL (0.0-0.8); MONO % 4.4 % (0.0-5.0); NEUTROPHILS # 7.5 10^3/uL (1.8-7.7); NEUTROPHILS % 78.2 % (36.0-66.0); PLATELET COUNT, AUTOMATED 251 10^3/uL (150-450); RED BLOOD COUNT 4.26 10^6/uL (4.30-6.10); WHITE BLOOD COUNT 9.6 10^3/uL (4.0-10.0)
[2019-01-06 22:29] VITALS: BP 102/59
[2019-01-06 22:36] LABS: BLOOD UREA NITROGEN 9 MG/DL (7-18); CALCIUM LEVEL 8.3 MG/DL (8.5-10.1); CARBON DIOXIDE LEVEL 28 MEQ/L (21-32); CHLORIDE LEVEL 108 MEQ/L (98-107); CREATININE FOR GFR 1.01 MG/DL (0.70-1.30); FREE T4 1.22 NG/DL (0.76-1.46); GLOMERULAR FILTRATION RATE > 60.0 (>60); GLUCOSE, FASTING 88 MG/DL (70-100); POTASSIUM SERUM 3.8 MEQ/L (3.5-5.1); SODIUM LEVEL 140 MEQ/L (136-145)
[2019-01-06] MEDS ORDERED: KETO10TAB PO (23:21)
== END 2019-01-06 23:30 | disposition home or self-care (01) ==
LOC: M ED 20:30
DX: R51 Headache (principal); J45.909 Unspecified asthma, uncomplicated; F17.210 Nicotine dependence, cigarettes, uncomplicated; F12.20 Cannabis dependence, uncomplicated
CPT/HCPCS: 80048; 83735; 84439; 84443; 85025; 96361; 96374; 96375; 99284; J1200; J1885; J2405

== ENCOUNTER → 2019-01-28 | Outpatient (CLI) | payer OTHER ==
[~2019-01-28] MED LIST changes: +CHAN1PAK11; -OMEP1CAP73 PO; +OMEP20CA4 PO; +OMEP40CA2 PO; -OMEP40CA97 PO; -SUCR1ORA PO; +SUCR1SUS PO
[2019-01-28 09:22] LABS: BASO # 0.1 10^3/uL (0.0-0.2); BASO % 0.8 % (0.0-1.0); EOS # 0.4 10^3/uL (0.0-0.50); EOS % 6.5 % (0.0-3.0); HEMATOCRIT 42.1 % (42.0-52.0); LYMPH # 2.9 10^3/uL (1.5-4.5); LYMPH % 44.5 % (24.0-44.0); MEAN CORPUSCULAR HGB CONC 33.3 g/dl (32.0-36.5); MEAN CORPUSCULAR VOLUME 93.1 fl (80.0-96.0); MONO # 0.5 10^3/uL (0.0-0.8); MONO % 7.4 % (0.0-5.0); NEUTROPHILS # 2.7 10^3/uL (1.8-7.7); NEUTROPHILS % 40.5 % (36.0-66.0); PLATELET COUNT, AUTOMATED 264 10^3/uL (150-450); RED BLOOD COUNT 4.52 10^6/uL (4.30-6.10); WHITE BLOOD COUNT 6.6 10^3/uL (4.0-10.0)
[2019-01-28 09:45] LABS: PERCENT SATURATION 23.3 % (19.7-50.0)
== END ==
LOC: M LAB 08:49
PROVIDERS: ATTEND Family Medicine
DX: Z86.2 Personal history of diseases of the blood and blood-forming organs and certain disorders involving the immune mechanism (principal)

== ENCOUNTER 2019-02-26 14:30 | Outpatient (RCR) | payer OTHER | END 2019-03-02 | LOC: M PT 14:30 | PROVIDERS: ATTEND Physician Assistant Medical | DX: M54.2 Cervicalgia (principal) ==

== ENCOUNTER → 2019-03-05 | Outpatient (CLI) | payer OTHER ==
[~2019-03-05] MED LIST changes: +OMEP1CAP73 PO; -OMEP20CA4 PO; -OMEP40CA2 PO; +OMEP40CA97 PO; +SUCR1ORA PO; -SUCR1SUS PO
--- NOTE | 2019-03-23 11:34 | ECWPNPC ---
PATIENT NAME: HAYDE CAMARGO : 1975 GENDER: MALE VISIT DATE: 03/05/2019 DISCHARGE DATE: 03/05/19 1640 VISIT LOCKED DATE TIME: PHYSICIAN: SHYAM TODD MD RESOURCE: SHYAM TODD MD REASON FOR APPOINTMENT 1. NECK PAIN/OCCIPITAL NEURALGIA RT SIDE HISTORY OF PRESENT ILLNESS NEW PATIENT CONSULT: WHEN DID YOUR PAIN FIRST START? . BRIEFLY DESCRIBE HOW YOUR PAIN STARTED? . HOW DOES YOUR PAIN CHANGE WITH TIME? . DOES YOUR PAIN AWAKEN YOU FROM SLEEP? . HOW MANY HOURS OF SLEEP DO YOU NORMALLY GET? . ANY DIAGNOSTIC TESTING? . FACILITY WHERE TESTS WERE DONE? ____. PAIN TREATMENT TREATMENT YES CANCER HAVE YOU EVER HAD ANY TYPE OF CANCER?NO NO. 43 YEAR OLD MALE PATIENT WITH A HISTORY OF CHRONIC RIGHT NECK PAIN. THE PATIENT DESCRIBES THE PAIN ACHING, SHARP, STABBING, SHOOTING, DAILY, AND INTERMITTENT WITH A PAIN SCORE OF 6-10/10 DEPENDING ON PHYSICAL ACTIVITY. THE PATIENT STATES HE HAD A BRAIN SURGERY ON JULY 2017 DUE TO A POSSIBLE TUMOR, BUT IT WAS FOUND TO BE A COLLECTION OF BLOOD. THE PATIENT SAYS AFTER HIS SURGERY HIS NECK AND HEAD PAIN BEGAN. THE PATIENT SAYS HIS PAIN IS AFFECTING HIS ABILITY TO PERFORM HIS DAILY ACTIVITIES SUCH READING, GOING OUTSIDE, CONCENTRATING, AND SLEEPING. THE PATIENT SAYS HE HAS SALVIA AND SWALLOWING ISSUES DUE TO A DISABLED AND WEAK VOCAL CORD THAT WAS A RESULT OF HIS SURGERY. PATIENT DENIES UNEXPLAINABLE WEIGHT LOSS, FEVER, CHILLS, NEW CHANGES ON HIS URINARY OR BOWEL CONTROL. PAIN SCREENING: PATIENT HAS A COMPLAINT OF ACUTE OR CHRONIC PAIN :YES FALL RISK SCREENING: SCREENING : NO FALLS IN THE PAST YEAR. CHAIREZ INVENTORY: QUESTIONNAIRE ASSESSEDTBD SCORE VALUE CALCULATED TBD CURRENT MEDICATIONS NONE PAST MEDICAL HISTORY CHIARI MALFORMATION ALLERGIES N.K.D.A. SURGICAL HISTORY BRAIN SURGERY 07/2017 LEFT ELBOW PIN 1994 FAMILY HISTORY MOTHER: 58 YRS, DIAGNOSED WITH UNSPECIFIED HEART DISEASE 2 BROTHER(S) , 2 SISTER(S) - HEALTHY. 2 SON(S) - HEALTHY. MOTHER FROM MALIGNANT BRAIN TUMORFATHER UNKNOWN. SOCIAL HISTORY GENERAL: TOBACCO USE ARE YOU A:CURRENT SMOKER ARE YOU INTERESTED IN QUITTING?NOT READY TO QUIT COUNSELED THE PATIENT ON SMOKING EFFECTS, EDUCATION [id number]/03/2019 HOW MANY CIGARETTES A DAY DO YOU SMOKE?6-10 HOW SOON AFTER YOU WAKE UP DO YOU SMOKE YOUR FIRST CIGARETTE?AFTER 60 MIN HOW OFTEN DO YOU SMOKE CIGARETTES?EVERY DAY PATIENT COUNSELED ON THE DANGERS OF TOBACCO USE AND URGED TO QUIT:03/05/2019 OTHERS AT HOME: IN-LAW(S), SPOUSE. HOUSING: RENTS APARTMENT. EDUCATION LEVEL OF EDUCATION:NOT FINISHED HIGH SCHOOL DIET: REGULAR. LANGUAGE LANGUAGES SPOKEN:FAROESE RECREATIONAL DRUG USE DRUG USE?YES MARIJUANA EXERCISE: WALKS. LEARNING BARRIERS / SPECIAL NEEDS BARRIERS TO LEARNING?YES COMMENTS PT. HAS TROUBLE READING AND WRITING HEARING IMPAIRED?NO VISION IMPAIRED?NO COGNITIVELY IMPAIRED?YES :LEARNING DISABILITY READINESS TO LEARN?NO LEARNING PREFERENCES?YES :DEMONSTRATION/VERBAL INSTRUCTION LEARNING CAPABILITIES PRESENT?YES EMOTIONAL BARRIERS?NO SPECIAL DEVICES?NO PHOTOGRAPHIC MACHINE OPERATOR NEEDED?NO PAIN CLINIC PFS, CLERGY, PUBLIC HEALTH REFERRALS PFS REFERRAL NEEDED?NO CLERGY REFERRAL NEEDED?NO PUBLIC HEALTH REFERRAL NEEDED?NO WAS THE PROVIDER NOTIFIED OF ANY PERTINENT INFO?NO HAS THE PATIENT BEEN EDUCATED REGARDING HIS/HER PLAN OF CARE?YES HAS THE PATIENT BEEN EDUCATED REGARDING PAIN, THE RISK FOR PAIN, THE IMPORTANCE OF EFFECTIVE PAIN MANAGEMENT, AND THE PAIN ASSESSMENT PROCESS?YES LATEX QUESTIONNAIRE LATEX ALLERGY : HAVE YOU EVER DEVELOPED ANY TYPE OF REACTION AFTER HANDLING LATEX PRODUCTS SUCH RUBBER GLOVES, CONDOMS, DIAPHRAGMS, BALLOONS, SOCKS, OR UNDERWEAR?NO LATEX ALLERGY : HAVE YOU EVER DEVELOPED ANY TYPE OF REACTION DURING OR AFTER DENTAL APPOINTMENT, VAGINAL/RECTAL EXAMINATION, SURGICAL PROCEDURE, OR ANY OTHER EXPOSURE?NO LATEX RISK : HAVE YOU EVER HAD ANY DIFFICULTY BREATHING OR HIVES AFTER EATING OR HANDLING ANY FRUITS, OR VEGETABLES; SUCH KIWI, BANANAS, STONE FRUITS, OR CHESTNUTSNO LATEX RISK : DO YOU HAVE A PREVIOUS PERSONAL HISTORY OF MORE THAN NINE SURGERIES, SPINA BIFIDA, OR REPEATED CATHERIZATIONS? NO LATEX RISK : ARE YOU FREQUENTLY EXPOSED TO LATEX PRODUCTS IN YOUR OCCUPATION?NO DATE ASKED : 03/05/2019 CAFFEINE CAFFEINE USE?YES DRINKS 10 -20 CUPS PER DAY ADVANCE DIRECTIVE ADVANCE DIRECTIVE DISCUSSED WITH PATIENT:YES FAWN CAMARGO () [phone] BAPTISM [id number] VOODOO MARITAL STATUS: . ALCOHOL SCREENING DID YOU HAVE A DRINK CONTAINING ALCOHOL IN THE PAST YEAR?NO POINTS0 INTERPRETATIONNEGATIVE OCCUPATION: DISABLED. HOSPITALIZATION/MAJOR DIAGNOSTIC PROCEDURE SURGERY RELATED SPINAL TAP 10/2017 REVIEW OF SYSTEMS REVIEWED BY: PROVIDER: SHYAM TODD MD . CONSTITUTIONAL: ANY CHANGE IN YOUR MEDICAL CONDITION? NO . CHILLS NO . FEVER NO . INFECTION: DO YOU HAVE NEW INFECTIONS? NO . DO YOU HAVE HISTORY OF MRSA? NO . MUSCULOSKELETAL: ANY NEW PATTERNS OF PAIN OR NUMBNESS? NO . SYTEMIC LUPUS NO . GASTROENTEROLOGY: ANY NEW CHANGE IN BOWEL CONTROL? NO . BARRETTS ESOPHAGUS NO . CIRRHOSIS NO . HEPATITIS NO . LIVER FAILURE NO . ACID REFLUX YES . UNEXPLAINED WEIGHT LOSS NO . GENITOURINARY: ANY NEW CHANGE IN BLADDER CONTROL? NO . IS THERE A CHANCE YOU COULD BE ? NO . HEMATOLOGY/LYMPH: DO YOU TAKE ANY BLOOD THINNERS? (FOR EXAMPLE- COUMADIN, PLAVIX, AGGRENOX, PLATEL, PRADAXA, OR XARELTO) NO . WHEN WAS YOUR LAST DOSE? DATE: TIME: . LOW PLATELET COUNT NO . SICKLE CELL DISEASE NO . VON WILLIEBRANDS NO . FACTOR V LEIDEN NO . THALLASEMIA NO . ANEMIA NEW ONSET . EASY BRUISING NO . NEUROLOGY: HAVE YOU FALLEN IN THE PAST 12 MONTHS? NO . ANY NEW EXTREMITY NUMBNESS OR WEAKNESS? YES NECK, RIGHT ARM . HEAD INJURY YES . DEMENTIA NO . CEREBRAL PALSY NO . MULTIPLE SCLEROSIS NO . DIZZINESS , LIGHTHEADED SENSATION . HEADACHE FREQUENT . STROKES NO . VERTIGO YES . CARDIOLOGY: DO YOU HAVE A PACEMAKER OR DEFIBRILLATOR? NO . ANGINA NO . HEART ATTACK NO . HEART SURGERY NO . CONGESTIVE HEART FAILURE/FLUID OVERLOAD NO . CHEST PAIN NO . HIGH BLOOD PRESSURE NO . IRREGULAR HEART BEAT NO . RESPIRATORY: HAVE YOU BEEN SICK IN THE PAST WEEK? NO . FEVER NO . FLU LIKE SYMPTOMS? NO . CPAP NO . BYPAP NO . ASTHMA NO . EMPHYSEMA NO . CHRONIC LUNG DISEASES NO . SHORTNESS OF BREATH ON EXERTION YES . DO YOU USE ANY TYPE OF TOBACCO (SMOKE, SMOKELESS, CHEW)? YES . COUGH NO . SNORING NO . INTEGUMENTARY: DO YOU HAVE ANY RASHES OR OPEN SORES? NO . ALLERGIC/IMMUNO: ARE YOU ALLERGIC TO IV DYE? NO . ANY NEW ALLERGIES? NO . PSYCHIATRIC: DO YOU HAVE THOUGHTS OF HURTING YOURSELF OR SOMEONE ELSE? NO . ARE YOU ABUSED, NEGLECTED, OR IN AN UNSAFE ENVIRONMENT? NO . ENDOCRINOLOGY: ARE YOU DIABETIC? NO . THYROID DISORDER NO . OTHER: DO YOU NEED ANY PRESCRIPTIONS? NO . IF YES, PLEASE LIST: ____ . ANY NEW PROBLEMS WITH YOUR MEDICATIONS? NO . WHEN DID YOU LAST EAT? ____ . WHEN DID YOU LAST DRINK? ____ . WHAT DID YOU LAST DRINK? ____ . NAME OF PERSON DRIVING YOU HOME? ____ . DO YOU HAVE ANY OTHER QUESTIONS OR CONCERNS NO . VITAL SIGNS WT 149.8 LBS, HT 59 IN, BMI 30.25 INDEX, BP 120/68 MM HG, HR 61 /MIN, RR 18 /MIN, TEMP 97.6 F, OXYGEN SAT % 98%, SAFE IN ENV? (Y/N) YES, NA INITIALS AW 1443, REVIEWED BY: VD. EXAMINATION GENERAL EXAMINATION: PATIENT IS ALERT O X 3 AND COOPERATIVE. LUNGS CLEAR, TO AUSCULTATION. HEART: NO MURMURS OR GALLOPS; FACIAL CRANIAL NERVES ARE GROSSLY NORMAL. GOOD SYMMETRY OF FACIAL MUSCLE MOVEMENT. NORMAL VISUAL MARADIAGA. STRENGTH OF UPPER EXTREMITIES IS ADEQUATE. ALLODYNIA AND THREE-INCH SCAR OVER THE OCCIPITAL AREA. TOUCHING IN THE AREA ALSO AFFECTS VISUAL ACTIVITY. NO PAIN OVER THE REST OF THE SKULL AND HAIR. TOUCHING THE MUSCLES OF THE RIGHT AND MIDDLE NECK AREAS CAUSES DISCOMFORT. PRESENCE OF BANDS OF TISSUE AND TRIGGER POINTS WITH RESTRICTION OF MOVEMENT OF THE NECK. MRI OF THE BRAIN DONE ON 01/01/2019 SHOWS SOME RESIDUAL HEMOSIDERIN STAINING IS SEEN RELATED TO THE OLD LEFT CEREBELLARHEMORRHAGE. 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 SUBOCCIPITAL CRANIOTOMY HAS BEEN PERFORMED. THERE IS NO EVIDENCE OF PSEUDOMENINGOCELE. 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 TREATMENT MYALGIA, OTHER SITE CLINICAL NOTES: WE DISCUSSED SEVERAL ISSUES WITH MR. CAMARGO' PAIN MANAGEMENT CASE. I WOULD LIKE TO REFER THE PATIENT TO [facility] PAIN BROOKLINE TO OFFER TREATMENT FOR THE PATIENT'S SCAR NEUROMA. THE AREA IS VERY SENSITIVE AND I WOULD FEEL MORE COMFORTABLE IF THE PATIENT RECEIVES TREATMENT AT THEIR FACILITY. DUE TO TRIGGER POINTS, BANDS OF TISSUE, AND RESTRICTION OF MOVEMENT, I WOULD LIKE TO MOVE FORWARD WITH A TRIGGER POINT INJECTION AT THIS TIME. WE DISCUSSED THE BENEFITS, RISKS, AND ALTERNATIVES OF THE INJECTION AND THE PATIENT WOULD LIKE TO PROCEED. I WOULD LIKE TO DISCUSS THE PATIENT'S CASE WITH DR. LUANN GARCIA AT [facility] AND TO CONSIDER TOPICAL PRODUCTS TO HELP WITH THE PATIENT'S PAIN. MY PLAN IS FOR THE PATIENT TO TRY VOLTAREN GEL, LIDOCAINE, AND INJECTIONS OVER THE SCAR NEUROMA. THE PATIENT HAS SALVIA AND SWALLOWING ISSUES DUE TO A WEAK VOCAL CORD, THEREFORE I WOULD LIKE TO DISCUSS WITH THE PATIENT'S ENT, DR. GEE, REGARDING PRESCRIBING THE PATIENT ANY MEDICATION. THE PATIENT WILL FOLLOW UP IN SEVERAL WEEKS AFTER HIS INJECTION TO SEE HOW IT IS WORKING AND TO ADDRESS THE OTHER ISSUES. INSTRUCTIONS WERE GIVEN, QUESTIONS WERE ANSWERED, PATIENT REPORTS UNDERSTANDING AND AGREES WITH THE PLAN. I, GM CASTRO, DOCUMENTED THE ABOVE INFORMATION ACTING A SCRIBE FOR DR. TODD. I HAVE REVIEWED THE ABOVE DOCUMENT, WRITTEN BY GM ARRIAZA AND I VERIFY THAT IT IS ACCURATE. DEAR LILLI SAWYER: THANK YOU FOR YOUR KIND REFERRAL OF HAYDE CAMARGO. IF YOU WANT TO DISCUSS HIS CASE WITH ME PLEASE CALL ME AT THE PAIN CENTER AT [phone]. SINCERELY, SHYAM TODD MD PAIN MEDICINE . PREVENTIVE MEDICINE PAIN CLINIC TEACHING: PROCEDURE TEACHING PT GIVEN WRITTEN AND VERBAL EDUCATION ON TRIGGER POINT INJECTIONS. PT ALSO GIVEN WRITTEN AND VERBAL PRE PROCEDURE INSTRUCTIONS. PT VERBALIZES UNDERSTANDING OF ALL EDUCATION AND INSTRUCTIONS. LEONOR FINNEY 03/05/2019 4:41:55 PM > . PROCEDURE CODES FA211 ESTABILISHED PATIENT [facility] FACILITY CHARGE [id number] CURRENT MEDS W/DOSAGES DOCUMENTED G8730 PAIN ASSESS POS TOOL F/U PLAN DOC DISPOSITION & COMMUNICATION FOLLOW UP REASON: TPI, REFER TO [facility] PAIN ELECTRONICALLY SIGNED BY SHYAM TODD MD, MD ON 03/12/2019 AT 03:39 PM EDT DISCLAIMER : THIS IS A VISIT SUMMARY EXTRACTED FROM THE [employer] CHART. IT IS NOT A COPY OF THE [employer] PROGRESS NOTE. MTDD
== END ==
LOC: M PAIN 15:00
PROVIDERS: ATTEND Anesthesiology
DX: M79.18 Myalgia, other site (principal); D36.10 Benign neoplasm of peripheral nerves and autonomic nervous system, unspecified; G89.29 Other chronic pain; F17.210 Nicotine dependence, cigarettes, uncomplicated

== ENCOUNTER → 2020-01-15 | Outpatient (CLI) | payer OTHER ==
[~2020-01-15] MED LIST changes: +CYCL-707 PO; -CYCL10TA PO; +PROHANCE 279.3MG/ML 15ML VIAL As Ordered ONE
== END ==
LOC: M RAD 11:30
PROVIDERS: ATTEND Physician Assistant Medical
DX: Q28.3 Other malformations of cerebral vessels (principal)
CPT/HCPCS: 70553; A9576

== ENCOUNTER 2020-06-30 12:26 | Inpatient (IN) | payer OTHER ==
[~2020-06-30] VITALS: Ht 175.3 cm; Wt 63.5 kg
[~2020-06-30 12:26] MED LIST changes: -PROHANCE 279.3MG/ML 15ML VIAL As Ordered ONE
[2020-06-30] MEDS ORDERED: ONDANSETRON 4MG/2ML VIAL IV ONE ×2 (13:15→17:30)
[2020-06-30] MEDS ORDERED: NS 1,000 ML IV ONE (13:15)
--- OUTSIDE RECORDS SUMMARY | 2020-06-30 13:21 | CCD ---
Author Author [facility] Organization [facility] Address Unknown Phone Unavailable Care Team Providers Care Fuel Dock Attendant Name Role Phone Allegra CLAY MD Unavailable Unavailable Allegra CLAY MD Unavailable Unavailable Allegra CLAY MD Unavailable Unavailable Allegra CLAY MD Unavailable Unavailable Allegra CLAY MD Unavailable Unavailable Allegra CLAY MD Unavailable Unavailable Allegra CLAY MD Unavailable Unavailable Allegra CLAY MD Unavailable Unavailable Allegra CLAY MD Unavailable Unavailable Allegra CLAY MD Unavailable Unavailable Allegra CLAY MD Unavailable Unavailable Allegra CLAY MD Unavailable Unavailable Allegra CLAY MD Unavailable Unavailable Allegra LCAY MD Unavailable Unavailable Allegra CLAY MD Unavailable Unavailable Allegra CLAY MD Unavailable Unavailable Allegra CLAY MD Unavailable Unavailable Allegra CLAY MD Unavailable Unavailable Allegra CLAY MD Unavailable Unavailable Allegra CLAY MD Unavailable Unavailable Allegra CLAY MD Unavailable Unavailable Allegra CLAY MD Unavailable Unavailable Allegra CLAY MD Unavailable Unavailable Allegra CLAY MD Unavailable Unavailable Allegra CLAY MD Unavailable Unavailable Allegra CLAY MD Unavailable Unavailable Allegra CLAY MD Unavailable Unavailable Allegra CLAY MD Unavailable Unavailable Allegra CLAY MD Unavailable Unavailable Allegra CLAY MD Unavailable Unavailable Allegra CLAY MD Unavailable Unavailable Allegra CLAY MD Unavailable Unavailable Allegra CLAY MD Unavailable Unavailable Allegra CLAY MD Unavailable Unavailable Allegra CLAY MD Unavailable Unavailable Allegra CLAY MD Unavailable Unavailable Allegra CLAY MD Unavailable Unavailable Allegra CLAY MD Unavailable Unavailable Allegra CLAY MD Unavailable Unavailable Allegra CLAY MD Unavailable Unavailable Allegra CLAY MD Unavailable Unavailable Allegra CLAY MD Unavailable Unavailable Allegra CLAY MD Unavailable Unavailable Allegra CLAY MD Unavailable Unavailable Allegra CLAY MD Unavailable Unavailable Allegra CLAY MD Unavailable Unavailable Allegra CLAY MD Unavailable Unavailable Allegra CLAY MD Unavailable Unavailable Allegra CLAY MD Unavailable Unavailable Allegra CLAY MD Unavailable Unavailable Allegra CLAY MD Unavailable Unavailable Allegra CLAY MD Unavailable Unavailable Allegra CLAY MD Unavailable Unavailable Allegra CLAY MD Unavailable Unavailable Allegra CLAY MD Unavailable Unavailable Allegra CLAY MD Unavailable Unavailable Allegra CLAY MD Unavailable Unavailable Allegra CLAY MD Unavailable Unavailable Allegra CLAY MD Unavailable Unavailable Allegra CLAY MD Unavailable Unavailable Allegra CLAY MD Unavailable Unavailable Allegra CLAY MD Unavailable Unavailable Allegra CLAY MD Unavailable Unavailable Allegra CLAY MD Unavailable Unavailable Allegra CLAY MD Unavailable Unavailable Allegra CLAY MD Unavailable Unavailable Allegra CLAY MD Unavailable Unavailable Allegra CLAY MD Unavailable Unavailable Allegra CLAY MD Unavailable Unavailable Allegra CLAY MD Unavailable Unavailable Allegra CLAY MD Unavailable Unavailable Allegra CLAY MD Unavailable Unavailable Allegra CLAY MD Unavailable Unavailable Allegra CLAY MD Unavailable Unavailable Allegra CLAY MD Unavailable Unavailable Allegra CLAY MD Unavailable Unavailable Allegra CLAY MD Unavailable Unavailable Allegra CLAY MD Unavailable Unavailable Allegra CLAY MD Unavailable Unavailable Allegra CLAY MD Unavailable Unavailable Allegra CLAY MD Unavailable Unavailable Allegra CLAY MD Unavailable Unavailable Allegra CLAY MD Unavailable Unavailable Erik Oconnor PA Unavailable Unavailable Erik Oconnor PA Unavailable Unavailable Erik Oconnor PA Unavailable Unavailable Stuck, K Wendy PA Unavailable Unavailable Stuck, K Wendy PA Unavailable Unavailable Stuck, K Wendy PA Unavailable Unavailable Stuck, K Wendy PA Unavailable Unavailable Stuck, K Wendy PA Unavailable Unavailable Stuck, K Wendy PA Unavailable Unavailable Stuck, K Wendy PA Unavailable Unavailable Stuck, K Wendy PA Unavailable Unavailable Stuck, K Wendy PA Unavailable Unavailable Stuck, K Ewndy PA Unavailable Unavailable Stuck, K Wendy PA Unavailable Unavailable Stuck, K Wendy PA Unavailable Unavailable Stuck, K Wendy PA Unavailable Unavailable Stuck, K Wendy PA Unavailable Unavailable Stuck, K Wendy PA Unavailable Unavailable Stuck, K Wendy PA Unavailable Unavailable Stuck, K Wendy PA Unavailable Unavailable Stuck, K Wendy PA Unavailable Unavailable Stuck, K Wendy PA Unavailable Unavailable Stuck, K Wendy PA Unavailable Unavailable Stuck, K Wendy PA Unavailable Unavailable Stuck, K Wendy PA Unavailable Unavailable Stuck, K Wendy PA Unavailable Unavailable Stuck, K Wendy PA Unavailable Unavailable Stuck, K Wendy PA Unavailable Unavailable Stuck, K Wendy PA Unavailable Unavailable Stuck, K Wendy PA Unavailable Unavailable Stuck, K Wendy PA Unavailable Unavailable Stuck, K Wendy PA Unavailable Unavailable Stuck, K Wendy PA Unavailable Unavailable Stuck, K Wendy PA Unavailable Unavailable Stuck, K Wendy PA Unavailable Unavailable Stuck, K Ewndy PA Unavailable Unavailable Stuck, K Wendy PA Unavailable Unavailable Stuck, K Wendy PA Unavailable Unavailable Stuck, K Wendy PA Unavailable Unavailable Stuck, K Wendy PA Unavailable Unavailable Stuck, K Wendy PA Unavailable Unavailable Carol Landeros MD Unavailable Unavailable Carol Landeros MD Unavailable Unavailable Carol Landeros MD Unavailable Unavailable Carol Landeros MD Unavailable Unavailable Carol Landeros MD Unavailable Unavailable Carol Landeros MD Unavailable Unavailable Carol Landeros MD Unavailable Unavailable Carol Landeros MD Unavailable Unavailable Carol Landeros MD Unavailable Unavailable Carol Landeros MD Unavailable Unavailable Carol Landeros MD Unavailable Unavailable Carol Landeros MD Unavailable Unavailable Carol Landeros MD Unavailable Unavailable Cameron-Estela, E Karan TEJADA Unavailable Unavailable Cameron-Estela, E Karan TEJADA Unavailable Unavailable Cameron-Estela, E Karan TEJADA Unavailable Unavailable Cameron-Estela, E Karan TEJADA Unavailable Unavailable Cameron-Estela, E Karan TEJADA Unavailable Unavailable Cameron-Estela, E Karan TEJADA Unavailable Unavailable Cameron-Estela, E Karan TEJADA Unavailable Unavailable Cameron-Estela, E Karan TEJADA Unavailable Unavailable Cameron-Estela, E Karan TEJADA Unavailable Unavailable Cameron-Estela, E Karan TEJADA Unavailable Unavailable Cameron-Estela, E Karan TEJADA Unavailable Unavailable Cameron-Estela, E Karan TEJDAA Unavailable Unavailable Cameron-Estela, E Karan TEJADA Unavailable Unavailable Cameron-Estela, E Karan TEJADA Unavailable Unavailable Cameron-Estela, E Karan TEJADA Unavailable Unavailable Cameron-Estela, E Karan TEJADA Unavailable Unavailable Cameron-Estela, E Karan TEJADA Unavailable Unavailable Cameron-Estela, E Karan TEJADA Unavailable Unavailable Cameron-Estela, E Karan TEJADA Unavailable Unavailable Cameron-Estela, E Karan TEJADA Unavailable Unavailable Cameron-Estela, E Karan TEJADA Unavailable Unavailable Cameron-Estela, E Karan TEJADA Unavailable Unavailable Cameron-Estela, E Karan TEJADA Unavailable Unavailable Salma GARCIA MD Unavailable Unavailable Salma GARCIA MD Unavailable Unavailable Salma GARCIA MD Unavailable Unavailable Salma GARCIA MD Unavailable Unavailable Salma GARCIA MD Unavailable Unavailable Salma GARCIA MD Unavailable Unavailable Salma GARCIA MD Unavailable Unavailable Salma GARCIA MD Unavailable Unavailable Salma GARCIA MD Unavailable Unavailable Salma GARCIA MD Unavailable Unavailable Salma GARCIA MD Unavailable Unavailable Salma GARCIA MD Unavailable Unavailable Salma GARCIA MD Unavailable Unavailable Salma GARCIA MD Unavailable Unavailable Salma GARCIA MD Unavailable Unavailable Salma GARCIA MD Unavailable Unavailable Salma GARCIA MD Unavailable Unavailable Salma GARCIA MD Unavailable Unavailable Salma GARCIA MD Unavailable Unavailable Salma GARCIA MD Unavailable Unavailable Salma GARCIA MD Unavailable Unavailable GARCIA, C GRAHAME MD Unavailable Unavailable GARCIA, C GRAHAME MD Unavailable Unavailable GARCIA, C GRAHAME MD Unavailable Unavailable GARCIA, C GRAHAME MD Unavailable Unavailable GARCIA, C GRAHAME MD Unavailable Unavailable GARCIA, C GRAHAME MD Unavailable Unavailable GARCIA, C GRAHAME MD Unavailable Unavailable GARCIA, C GRAHAME MD Unavailable Unavailable GARCIA, C GRAHAME MD Unavailable Unavailable GARCIA, C GRAHAME MD Unavailable Unavailable GARCIA, C GRAHAME MD Unavailable Unavailable GARCIA, C GRAHAME MD Unavailable Unavailable GARCIA, C GRAHAME MD Unavailable Unavailable GARCIA, C GRAHAME MD Unavailable Unavailable GARCIA, C GRAHAME MD Unavailable Unavailable GARCIA, C GRAHAME MD Unavailable Unavailable GARCIA, C GRAHAME MD Unavailable Unavailable GARCIA, C GRAHAME MD Unavailable Unavailable GARCIA, C GRAHAME MD Unavailable Unavailable GARCIA, C GRAHAME MD Unavailable Unavailable GARCIA, C GRAHAME MD Unavailable Unavailable GARCIA, C GRAHAME MD Unavailable Unavailable GARCIA, C GRAHAME MD Unavailable Unavailable GARCIA, C GRAHAME MD Unavailable Unavailable GARCIA, C GRAHAME MD Unavailable Unavailable GARCIA, C GRAHAME MD Unavailable Unavailable GARCIA, C GRAHAME MD Unavailable Unavailable GARCIA, C GRAHAME MD Unavailable Unavailable GARCIA, C GRAHAME MD Unavailable Unavailable GARCIA, C GRAHAME MD Unavailable Unavailable GARCIA, C GRAHAME MD Unavailable Unavailable GARCIA, C GRAHAME MD Unavailable Unavailable GARCIA, C GRAHAME MD Unavailable Unavailable GARCIA, C GRAHAME MD Unavailable Unavailable GARCIA, C GRAHAME MD Unavailable Unavailable GARCIA, C GRAHAME MD Unavailable Unavailable GARCIA, C GRAHAME MD Unavailable Unavailable GARCIA, C GRAHAME MD Unavailable Unavailable Re-disclosure Warning The records that you are about to access may contain information from federally-assisted alcohol or drug abuse programs. If such information is present, then the following federally mandated warning applies: This information has been disclosed to you from records protected by federal confidentiality rules (42 CFR part 2). The federal rules prohibit you from making any further disclosure of this information unless further disclosure is expressly permitted by the written consent of the person to whom it pertains or as otherwise permitted by 42 CFR part 2. A general authorization for the release of medical or other information is NOT sufficient for this purpose. The Federal rules restrict any use of the information to criminally investigate or prosecute any alcohol or drug abuse patient.The records that you are about to access may contain highly sensitive health information, the redisclosure of which is protected by Article 27-F of the [facility] Public Health law. If you continue you may have access to information: Regarding HIV / AIDS; Provided by facilities licensed or operated by the [facility] Office of Mental Health; or Provided by the [facility] Office for People With Developmental Disabilities. If such information is present, then the following [facility] mandated warning applies: This information has been disclosed to you from confidential records which are protected by state law. State law prohibits you from making any further disclosure of this information without the specific written consent of the person to whom it pertains, or as otherwise permitted by law. Any unauthorized further disclosure in violation of state law may result in a fine or shelter sentence or both. A general authorization for the release of medical or other information is NOT sufficient authorization for further disc losure. Allergies and Adverse Reactions Type Description Substance Reaction Status Data Source(s ) Drug Class NO KNOWN ALLERGIES NO KNOWN ALLERGIES [facility] Family History Family Member Name Family Member Gender Family Member Status Date o f Status Description Data Source(s) Unknown Unknown Problem [facility] Unknown Female Problem MEDENT ([facility]) Encounters Encounter Providers Location Date Indications Data Source(s ) Outpatient Referrer: Wendy REEDER 04/07/2020 12:00:[address] [facility] Outpatient Referrer: Wendy REEDER 02/26/2020 12:00:00 AM T [facility] Outpatient Attender: LUANN GARCIA MD [id number] 01/18 12:00:00 AM EDT - 01/19/2020 11:30:32 AM EDT Other malformations of cerebral vessels [facility] Other malformations of cerebral vessels Outpatient Attender: TRACIE CLAY MD 10/26/2019 09:01:06 P [facility] Outpatient Attender: TRACIE CLAY MD 07/09/2019 12:18:01 P [facility] Outpatient Attender: TRACIE CLAY MD 07/08/2019 12:33:00 P [facility] Outpatient Attender: TRACIE CLAY MD 05/26/2019 09:27:01 A [facility] Outpatient Attender: TRACIE CLAY MD 05/26/2019 09:26:00 A M EST [facility] Outpatient Referrer: Karan Landeros MD 05/18/2019 12: 00:[address] [facility] Insurance Providers Payer name Policy type / Coverage type Policy ID Covered republican ID Covered republican's relationship to betancur Policy Betancur Plan Information UNHC COMMUNITY PLAN MCDHMO [id number] SP [id number] [facility](MCA[facility]) O [id number] S [id number] UHC I [id number] Self [id number] Managed Care - UHC Community Plan P [id number] S [id number] Medicaid S [id number] S [id number] Managed Care - UHC Community Plan P [id number] S [id number] UNHC COMMUNITY PLAN MCDHMO [id number] SP [id number] Medicaid S [id number] S [id number] Managed Care - UHC Community Plan P [id number] S [id number] Managed Care - [employer] P [id number] S [id number] Medicaid S [id number] S [id number] [facility] (HMO) [id number] Self [id number] [employer]HC COMMUNITY PLAN MCDHMO [id number] SP [id number] UHC I [id number] Self [id number] UNHC COMMUNITY PLAN MCDHMO [id number] SP [id number] UNHC COMMUNITY PLAN MCDHMO [id number] SP [id number] UNHC COMMUNITY PLAN MCDHMO [id number] SP [id number] [facility] [id number] Self [id number] UNHC COMMUNITY PLAN MCDHMO [id number] SP [id number] UNHC COMMUNITY PLAN MCDHMO [id number] SP [id number] [facility](MCAID) O [id number] S [id number] [employer]HC COMMUNITY PLAN MCDHMO [id number] SP [id number] [employer] [place] PLAN [id number] SP [id number] MEDICAID [id number] SP [id number] Results ID Date Data Source [id number] 01/19/2020 11:33:46 AM EDT [facility] Name Value Range Interpretation Code Description Data Kirstie rce(s) Supporting Document(s) Progress Note [facility] THKDJr1mMvOARnSc11/JRVhuLRQmn2JsFFxySDr3KNljWYDaI9UyZUR7tT2yIXL1OJvFDtAcNwArCTE9 lbm [file] agF2C0ZuF/h4Ln2YOM/YpqSC7RuCmbPlmjrl1Ju4+Ely/Qyl38iuj5hndpEpXy0j/4b8o52k/YU7Ncj P0VxdUi4IwcXOK1Yq4p5EY2D7db+XnmaPD5+l/1+/I5o4yQjNWnsX6nzDx3iOn9PSQ/A3Zub/WH2l3/G p/hF3i+oZnJzjl80ElrVHGrrsLyWp26NRO/sxp29+V IIEq1228w190xehX7XUHBk5fUHrWRoX5aXnMukc+oe0xYIu9ZVDYxyoSkFiGMEz7UtYWoLS1n77E2V2W /cd2rAEmjuKKQT+Q0Zzhdtz9TNTp7UBxVC2cZy2ROWDjuT94Op0sYtPKqVdO63d0XWwd/XMSLOR8XGzP WeXR3JzGHnOt2QLzFg2xhYp7Io65SeJp+n3M6T0+65 T2xaTNyysJ57TG4Zbx4fI802S3Pl5v1MRRq8M3A1zTVaVr4rWFX352Xg2/06bNbz5+MCo3SahLYXfQk8 yoIBhc3ZhMNL95xg+hx6LAuMcvSrvu93O0c7htJ7Gbmfy4gAN02B5gN9+pRFBcdy6RKzB+i/apOqtZyv px1mpj0XzublB20mwvu4eys4kqeKml01ZY3uV9DBRC xT1iB8xDws4M8V9gSZkcI++M6lYV1yu4fCxZaVtQxTEvJU/AvRtiuvJaQp63Lr8Q9cnEHmk9rRRshJS1 cTP55cy2ogEwey2wnJAXX0R/50fu00+iMdpCrPvcPdnHQN+iS/YjyHAVdbB1DyIaYx5GKwNnI1oczP5+ +8sL15Lnc60K0ye3/ds883JsI5UUqlXKu3+6I8nL71 T7JyWYnIvnH+y9R3U+k3vPmYZ7TmwMTAjwvuCRPxjad76txbUXYlkjxq9K+8bGTMJJHl7wSZrUw81x2Q WWbX0fUXXnwDvAlB0qbrEV1Dx3usldzEMJHcV9MKUM5FhoWjRC8TxkicmE+dkS2Q4bB7429z0MPRBLCD oYGqrekffmuhJfGPBq/Xr4CiqC5oeco5Wdt38u64fQ 7bQ5sF/4UAhkxI7AlF0zfLJ2YnVGu9DEmJjCPSP+jIF9IDmFbVU/QQz8gIwKz5e/c9El4irchW2EJrQ8 y6RPbHPkziLW2LIObHHTNmcv3yOuwG3kY7Cp9RZHoQJ78rdZGJsyta5bSadVMaSPJjZyiDC1ZEZpGzEX cBhtuI2UE+bP6OYMrUptJqPmUJAf7OEcHGGkSSYdts Uxf8vyLs4wdRI+9RGWOMj6JtGR+fINRALhgZ+RryASCC/2AKIjw38oMDCe4Q5FizQHHCzXAYfhi9RVlW gOc1EuRc/qsSiwda8EKf+r+h8iRmFRKk+fHL7/Lázaro+msKHUUqa3K6p7dysFt7Z/XyHpnP66gCq4kLx0N [file] AgICAgICAgICAgICAgICAgICAgICAgICAgICAgICAgICAgICAgICAgICAgICAgICAgICAgICAgICAgIC AgICAgICAgICAgICAgICAgICAgICAgICAgICAgDQog ICAgICAgICAgICAgICAgICAgICAgICAgICAgICAgICAgICAgICAgICAgICAgICAgICAgICAgICAgICAg ICAgICAgICAgICAgICAgICAgICAgICAgICAgICAgICAgICAgICAgDQogICAgICAgICAgICAgICAgICAg ICAgICAgICAgICAgICAgICAgICAgICAgICAgICAgIC AgICAgICAgICAgICAgICAgICAgICAgICAgICAgICAgICAgICAgICAgICAgICAgICAgDQogICAgICAgIC AgICAgICAgICAgICAgICAgICAgICAgICAgICAgICAgICAgICAgICAgICAgICAgICAgICAgICAgICAgIC AgICAgICAgICAgICAgICAgICAgICAgICAgICAgICAg DQogICAgICAgICAgICAgICAgICAgICAgICAgICAgICAgICAgICAgICAgICAgICAgICAgICAgICAgICAg ICAgICAgICAgICAgICAgICAgICAgICAgICAgICAgICAgICAgICAgICAgDQogICAgICAgICAgICAgICAg ICAgICAgICAgICAgICAgICAgICAgICAgICAgICAgIC AgICAgICAgICAgICAgICAgICAgICAgICAgICAgICAgICAgICAgICAgICAgICAgICAgICAgDQogICAgIC AgICAgICAgICAgICAgICAgICAgICAgICAgICAgICAgICAgICAgICAgICAgICAgICAgICAgICAgICAgIC AgICAgICAgICAgICAgICAgICAgICAgICAgICAgICAg ICAgDQogICAgICAgICAgICAgICAgICAgICAgICAgICAgICAgICAgICAgICAgICAgICAgICAgICAgICAg ICAgICAgICAgICAgICAgICAgICAgICAgICAgICAgICAgICAgICAgICAgICAgDQogICAgICAgICAgICAg ICAgICAgICAgICAgICAgICAgICAgICAgICAgICAgIC AgICAgICAgICAgICAgICAgICAgICAgICAgICAgICAgICAgICAgICAgICAgICAgICAgICAgICAgDQogIC AgICAgICAgICAgICAgICAgICAgICAgICAgICAgICAgICAgICAgICAgICAgICAgICAgICAgICAgICAgIC AgICAgICAgICAgICAgICAgICAgICAgICAgICAgICAg PLZsBPRwTHa0W0xfYGFuKXXpYO5jCXn5Zo3+LOsHSiZsIYY1fdEbiF6JAU7aq1OvRLpcVDUdy6SgJLs2 QY1GBOElJQteIB6ISQvddt1TDIXjMWZdrDCEd9pxNfIaOQF1MBFrAasjRO0NGHFgU2avdhRbZTKkTTRN RTewFIJURHbzZNBXEP5MInExR8OnpB17BJLBVt4+DQ fdscOoFohFRtElCXQxt3IePKz8LY5CUQTeEotxt1VpXqZqMBVAMCejJY4HSOQ3ZOU0OOPeMc5JULIyN1 56jfBaZD2EHz5MDaGeFQ7qxy9QEmLsSIUhYqsYQri0DVfgSK7NqDRcFMuPsz3mhoTdedYMy7SxghMplK EPqRAsmdKYWGP0hTCjQUFWZAVkyTO2UdX7ZiAvBrGy FKU0NYAcAQ0oTEheUE4VXRS0IJxmWBYiZHLuZ6cGSkMqHBPdVJEmdZtdXP9FIdLvJ1BetcZdkSPnRtAs IFINCj4+ZEitzoKfLprUJqM5HXNki0OeTEw8DR7WSVGfSUjeJX8MRKXxlQ0mNJmrJD8PEzFtUOLfYOVP KfDpH64scGFbBGj1G7JtJnGhBKNvNvcvLARoMDxnKt FtZXMgWyBdDQogID4+ID4+INwoBO1JMXucvvKlCZKrJi3PSLIdDMKpCN5dXQIzQDPoC8K4dQkkVLEDBj KgE0sdszfqOP2gYTTyQ037yIdeufBaFTDiCVMqGd5CXCCzYJI8NUWkhGSnEySgQUJXYCpxAC4PyCGxPD O2vZ9cUFopZBPiHGLsH3vDZjYwtYrcTQ68lDzakkLm bCBdDQo+Xz8MTF6yy0YxVAd4lpLvZAwlRZW5ANoaWZHgZYMfPKCnPDL8WLG8XMYEHhYnZTEcUBToEWto QLFnGPXkxz9DCJHcEHMxBOc5FHGoOXZhETZjAZypQHLgJRK4IpT1TFVeKWAnTQ5JOfBlYYOcPVIoGRje RQAoLKYjzq0LXFGdRTInPYB7SNSiPSGpXEPpTIxwQB MaMAX9MSU6PFSnHBXiFK0MYcTzNANeUHbrIEznEKByRUEozq2WGWFoVAOpZkI9SnKrJDPoXCLcUPgfOL OmEQL1GnQiNPOtVEBiYE1MEkVpOIUwKIy0LeFuKZUcVEVmfw4DAMEyGGAuDYn2RPPxRIZnXXXlTOeiVX BpOVIbHZufMQXuSIHtRK8SQaZeLIDyBWIeLyFpCEVi QDXzsc6CGFRpAVDxQsUkMnHpWLIqXDDrHQwfUKMnNMWmYGM2SQJcJZXkYV6QAvCbRVSnMJN9NAPhWNCv WVZjyh4FQNYzRLIpGEU6GqKuDGGgRHPyLUccAEOcNTR6EnE9GKBnNJRqXW6ECqJhLTDdZqP6RemgYPSq GDRipi9EKEBqZOVsSGxiNsWwDPScYFAwJXtqEONyTD N1ELeeOZEfLAOhPC3ZKhXjIJLvUxFiVpXtKPLaVNJrrg2LTJEzJPYvDvtoYAFwVETqQUEgMYlbFGWkMJ B9WYd4MNYqBEBgOX8QArNnNNKcNgypFDIkIRUgKSBvwo0CsNKdyKpwlj6AJIvTXw0SfUvaDMJ6WAocEp 6igZElJPVpMITYEl3ZoaRfZAKnPTPKBOthTFTwPCP5 FYCbBUV4RYUtGGG1BES1JFFoEYd1VTQrBZeqGKDwVqP1SthgRGE8EQtlFTIdHcZxTJkeNQU2GsjiRWL9 NzBlYWQ+NV7mWQj+Hz4Ld9ZcfxL6qeSeFZalTeY9Sk1YEGAHB0XPGq== Procedure Social History Code Duration Value Status Description Data Source(s ) Alcohol intake 01/19/2020 12:00:00 AM EDT Current non-d ruth ann of alcohol (finding) completed Current non-drinker of alcohol (finding) [facility] Tobacco use and exposure 01/19/2020 12:00:00 AM EDT Never used co mpleted Never used [facility] Cigarettes smoked current (pack per day) - Reported 01/19/20 12:00:00 AM EDT UNK completed [facility] Smoking 01/19/2020 12:00:00 AM EDT Current every day smoker co mpleted Current every day smoker [facility] Vital Signs ID Date Data Source [id number] 01/19/2020 11:42:32 AM EDT [facility] Name Value Range Interpretation Code Description Data Source(s) WEIGHT RECORDED 140 lb 140 lb [facility]
[2020-06-30 13:25] LABS: BASO # 0.1 10^3/uL (0.0-0.2); BASO % 0.5 % (0.0-1.0); EOS # 0.1 10^3/uL (0.0-0.5); EOS % 0.6 % (0.0-3.0); HEMATOCRIT 40.2 % (42.0-52.0); HEMOGLOBIN 13.5 g/dl (13.5-17.5); LYMPH # 2.1 10^3/uL (1.5-5.0); LYMPH % 15.8 % (24.0-44.0); MEAN CORPUSCULAR HEMOGLOBIN 30.8 pg (27.0-33.0); MEAN CORPUSCULAR HGB CONC 33.6 g/dl (32.0-36.5); MEAN CORPUSCULAR VOLUME 91.6 fl (80.0-96.0); MONO # 0.5 10^3/uL (0.0-0.8); MONO % 4.1 % (0.0-5.0); NEUTROPHILS # 10.5 10^3/uL (1.5-8.5); NEUTROPHILS % 78.5 % (36.0-66.0); PLATELET COUNT, AUTOMATED 255 10^3/uL (150-450); RED BLOOD COUNT 4.39 10^6/uL (4.30-6.10); WHITE BLOOD COUNT 13.3 10^3/uL (4.0-10.0)
--- NOTE | 2020-06-30 14:19 | REP ---
INDICATION: nausea. COMPARISON: Comparison chest x-ray July 22, 2017. TECHNIQUE: Portable upright AP chest radiograph. FINDINGS: The lungs are well inflated and free of infiltrate. Pleural angles are sharp. Heart size is normal. Pulmonary vasculature is not increased. Monitoring electrodes are seen. IMPRESSION: No active disease. <Electronically signed by Eben Matthews > 06/30/20 [id number]
[2020-06-30 14:20] LABS: ALBUMIN 4.2 GM/DL (3.2-5.2); ALT/SGPT 15 U/L (12-78); BILIRUBIN,DIRECT 0.2 MG/DL (0.0-0.2); BILIRUBIN,TOTAL 0.5 MG/DL (0.2-1.0); BLOOD UREA NITROGEN 10 MG/DL (7-18); CALCIUM LEVEL 9.4 MG/DL (8.5-10.1); CARBON DIOXIDE LEVEL 25 MEQ/L (21-32); CHLORIDE LEVEL 105 MEQ/L (98-107); CK-MB VALUE MASS 1.4 NG/ML (<3.6); CPK CREATINE PHOSPHOKINASE 163 U/L (39-308); CREATININE FOR GFR 1.18 MG/DL (0.70-1.30); GLOMERULAR FILTRATION RATE > 60.0 (>60); GLUCOSE, FASTING 137 MG/DL (70-100); LIPASE 531 U/L (73-393); MB/CK RELATIVE INDEX 0.86 (< OR =4); POTASSIUM SERUM 3.8 MEQ/L (3.5-5.1); SODIUM LEVEL 140 MEQ/L (136-145); TOTAL PROTEIN 7.1 GM/DL (6.4-8.2); TROPONIN I < 0.02 NG/ML (< 0.10)
[2020-06-30] MEDS ORDERED: ISOVUE-370 76% 100ML VIAL As Ordered ONE (14:44)
[2020-06-30] MEDS ORDERED: PROMETHAZINE INJ 25 MG/ML VIAL (J2550) IV ONE (15:00)
--- NOTE | 2020-06-30 15:09 | REP ---
INDICATION: nausea. COMPARISON: Comparison head CT study June 10, 2018.. TECHNIQUE: Helical scanning is acquired. 5 mm axial images were reformatted. Coronal MPR images were generated. FINDINGS: Bone window settings demonstrate that the patient is status post suboccipital craniotomy. A mesh prosthesis is seen at the craniectomy site. Bony calvarium is otherwise intact. Visualized paranasal sinuses are clear. No intraorbital abnormality is seen. On soft tissue window settings, the lateral, 3rd, and 4th ventricles are normal in size and position. Macdonald-white differentiation pattern is intact above and below the tentorium. There is no evidence of intracranial hemorrhage. No infarct, mass, extra-axial fluid collection or midline shift is seen. IMPRESSION: Status post suboccipital craniotomy. Otherwise normal head CT. Unchanged from comparison study. No acute intracranial abnormality.. <Electronically signed by Eben Matthews > 06/30/20 [id number]
--- NOTE | 2020-06-30 15:21 | REP ---
INDICATION: chest pain. COMPARISON: Comparison chest CT study October 18, 2017.. TECHNIQUE: Contrast dose: 100 ML of Isovue [address] technique: Helical scanning is acquired and overlapping 1.5 mm and contiguous 3 mm axial images are reformatted. In addition, maximum intensity projection and multiplanar re-formation images are generated in sagittal and coronal imaging projections. FINDINGS: There is good opacification in the pulmonary arterial tree. There is no evidence of vessel cut off or filling defect to suggest pulmonary embolus. Homogeneous opacity is seen in the thoracic aorta. There is no evidence of aneurysm or dissection. Lung window settings demonstrate clear well inflated lung hanson. There is no evidence of infiltrate, mass, atelectasis, or significant pulmonary nodule. No hilar or mediastinal mass or adenopathy is seen. No pleural or pericardial effusion is noted. In the upper abdomen, normal adrenal glands are seen. The visualized upper abdominal structures are unremarkable. IMPRESSION: No CT evidence of pulmonary embolus. Negative CT pulmonary angiogram. <Electronically signed by Eben Matthews > 06/30/20 [id number]
--- NOTE | 2020-06-30 15:24 | REP ---
INDICATION: pancreatitis, abdominal pain. COMPARISON: Comparison CT study 20 June 2017.. TECHNIQUE: Helical scanning was acquired and 4 mm axial images are re-formatted. Coronal and sagittal MPR images were generated and reviewed. The contrast enhancement dose is 100 mL of intravenous Isovue 370. FINDINGS: Preliminary digital wringer operator radiograph shows an unremarkable bowel gas pattern. The liver and the spleen are normal in size homogeneous in texture. There appears to be mild fatty infiltration of the liver. There is a tiny subcentimeter cysts in the right lobe anteriorly. No abnormality is noted in the gallbladder. The pancreas is morphologically intact. No adrenal lesion is seen on either side. There is no evidence of upper abdominal ascites. Kidneys enhance symmetrically and are morphologically intact. No retroperitoneal mass or adenopathy is observed. There is an accessory lower pole right renal artery. Normal caliber aorta. The left gastric artery takes a direct aortic origin. This is a normal variant. No other visceral vascular abnormality is observed. Small and large intestinal bowel loops are unremarkable. Normal appendix is seen in the right lower quadrant medial to the cecum. No abdominal wall defect is seen. No bony destructive lesion is observed. The lung bases are clear. IMPRESSION: Negative CT abdomen and pelvis with IV contrast. No acute abnormality seen. <Electronically signed by Eben Matthews > 06/30/20 [id number]
[2020-06-30] MEDS ORDERED: PROCHLORPERAZINE 10MG/2ML VIAL (J0780 PER 1) IV PRN (18:30)
[2020-06-30] MEDS ORDERED: PANTOPRAZOLE 40MG VIAL (C9113 PER 1) IV ONE (18:30)
--- NOTE | 2020-06-30 18:36 | HPEPDOC ---
General Date of Admission 06/30/20 Date of Service: Jun 30, 2020 Chief Complaint The patient is a 44-year-old male admitted with a reason for visit of Vomiting. Source: Patient History of Present Illness 44 year old male presented to the [facility] ED with abdominal pain, chest pain and vomiting of blood which started suddenly this morning. Patient reports he woke up this morning with sudden onset lower chest and left upper abdominal pain, he started coughing and then started vomiting blood. The blood was Coffee ground colored. His pain is located in the epigastrium and left upper quadrant, constant sharp rates it at 10/10 intensity. He continued to have intractable vomiting in the ED with small amounts of coffee grounds in it at per ED provider. He denied any diarrhea or niall. He had CT abd and pel with contrast and CTA of chest both of which were negative for any acute findings. No pancreatic inflammation or kidney stones seen. His lipase was mildly elevated at 513 and WBC at 13.3, his initial lactate was 2.9 then repeat was 1.9. He is mostly likely having acute gastritis with some bleeding due to gastric erosions or ulceration. Home Medications No Active Prescriptions or Reported Meds Allergies Coded Allergies: No Known Allergies (Unverified , 01/06/19) Past Medical History Medical History Chiari malformation Brain surgery in 2018 and evacuation of blood clot at the left post neck pancreatitis kidney stones asthma right occipital neuralgia. Anger issues Surgical History Brain surgery Family History MOTHER: 58 YRS, DIAGNOSED WITH UNSPECIFIED HEART DISEASE .MOTHER FROM MALIGNANT BRAIN TUMOR FATHER UNKNOWN. Social History * Smoker: current smoker Alcohol: Denies Drugs: marijuana A-FIB/CHADSVASC A-FIB History Current/History of A-Fib/PAF?: No Review of Systems Constitutional: Denies: Chills, Fever, Night Sweats Eyes: Denies: Pain, Vision change ENT: Denies: Head Aches, Ear Pain, Dysphagia Skin: Denies: Rash, Lesions, Breakdown Pulmonary: Reports: Cough; Denies: Dyspnea Cardiovascular: Reports: Chest Pain; Denies: Palpitations, Orthopnea, Lt Headedness Gastrointestinal: Reports: Nausea, Vomiting, Abdominal Pain, Other Symptoms (coffee ground emesis) Genitourinary: Denies: Dysuria, Frequency, Incontinence, Retention Neurological: Denies: Weakness, Numbness, Change in speech, Confusion Psych: Reports: Anger Physical Examination General Exam: Positive: Alert, Cooperative, Mild Distress Eye Exam: Positive: PERRLA, Conjunctiva & lids normal, EOMI; Negative: Sclera icteric ENT Exam: Positive: Atraumatic, Mucous membr. moist/pink, Pharynx Normal Neck Exam: Positive: Supple; Negative: JVD, thyromegaly Chest Exam: Positive: Clear to auscultation, Normal air movement Heart Exam: Positive: Rate Normal, Regular Rhythm, Normal S1, Normal S2; Negative: Murmurs, Rubs Abdomen Exam: Positive: BS Hypoactive, Soft, Tenderness (epigastric and left upper abdomen) Extremity Exam: Positive: Normal pulses; Negative: Clubbing, Cyanosis, Edema Skin Exam: Positive: Nl turgor and temperature; Negative: Breakdown, Lesion Vital Signs Vital Signs Date Time Temp Pulse Resp B/P (MAP) Pulse Ox O2 Delivery O2 Flow Rate FiO2 06/30/20 17:00 44 16 143/89 (107) 96 06/30/20 13:41 98.2 Room Air Laboratory Data Labs 24H Laboratory Tests 2 06/30/20 13:14: Immature Granulocyte % (Auto) 0.5, Neutrophils (%) (Auto) 78.5H, Lymphocytes (%) (Auto) 15.8L, Monocytes (%) (Auto) 4.1, Eosinophils (%) (Auto) 0.6, Basophils (%) (Auto) 0.5, Neutrophils # (Auto) 10.5H, Lymphocytes # (Auto) 2.1, Monocytes # (Auto) 0.5, Eosinophils # (Auto) 0.1, Basophils # (Auto) 0.1, Nucleated Red Blood Cells % (auto) 0.0, Anion Gap 10, Glomerular Filtration Rate > 60.0, Lactic Acid Level 2.3*H, Calcium Level 9.4, Total Bilirubin 0.5, Direct Bilirubin 0.2, Aspartate Amino Transf (AST/SGOT) 11, Alanine Aminotransferase (ALT/SGPT) 15, Alkaline Phosphatase 79, Total Creatine Kinase 163, Creatine Kinase MB 1.4, Creatine Kinase MB Relative Index 0.86, Troponin I < 0.02, Total Protein 7.1, Albumin 4.2, Albumin/Globulin Ratio 1.4, Lipase 531H 06/30/20 17:40: Urine Color YELLOW, Urine Appearance CLEAR, Urine pH 9.0, Urine Specific Mar Lin >1.060H, Urine Protein NEGATIVE, Urine Glucose (UA) NEGATIVE, Urine Ketones TRACEH, Urine Blood NEGATIVE, Urine Nitrite NEGATIVE, Urine Bilirubin NEGATIVE, Urine Urobilinogen 0.2, Urine Leukocyte Esterase NEGATIVE, Urine WBC (Auto) 0, Urine RBC (Auto) 1, Urine Hyaline Casts (Auto) 0, Urine Bacteria (Auto) NEGATIVE, Urine Squamous Epithelial Cells 0, Urine Sperm (Auto) 06/30/20 17:43: Lactic Acid Followup at 4 Hours 1.9 CBC/BMP Laboratory Tests 06/30/20 13:14 Assessment/Plan 44 year old male presented to the [facility] ED with abdominal pain, chest pain and vomiting of blood which started suddenly this morning. Patient reports he woke up this morning with sudden onset lower chest and left upper abdominal pain, he started coughing and then started vomiting blood. The blood was Coffee ground colored. His pain is located in the epigastrium and left upper quadrant, constant sharp rates it at 10/10 intensity. He continued to have intractable vomiting in the ED with small amounts of coffee grounds in it at per ED provider. He denied any diarrhea or niall. He had CT abd and pel with contrast and CTA of chest both of which were negative for any acute findings. No pancreatic inflammation or kidney stones seen. His lipase was mildly elevated at 513 and WBC at 13.3, his initial lactate was 2.9 then repeat was 1.9. He is mostly likely having acute gastritis with some bleeding due to gastric erosions or ulceration. Acute gastritis/ peptic ulcer disease will start on PPI inf, sucralfate zofran and compazine full liquid diet will monitor HH. Morphine for pain. Chronic abdominal pain he carries a h/o pancreatitis, he was never a drinker, right now his lipase is mildly elevated to 513 i do not think he has any acute pancreatitis. CT scan did not suggest of any changes in the pancreas suggestive of chronic pancreatitis. Plan / VTE VTE Prophylaxis Ordered?: Yes YASMEEN THOMAS MD Jun 30, 2020 18:36
[2020-06-30] MEDS ORDERED: MORPHINE 2 MG/ML 1ML VIAL (J2270) IV PRN (18:45)
[2020-06-30] MEDS: ONDANSETRON 4MG/2ML VIAL IV SCH (19:26)
--- OUTSIDE RECORDS SUMMARY | 2020-06-30 19:26 | CCD ---
Author Author [facility] Organization [facility] Address Unknown Phone Unavailable Care Team Providers Care Building Maintenance Custodian Name Role Phone Allegra CLAY MD Unavailable [...] Unavailable Allegra CLAY MD Unavailable Unavailable Allegra CLYA MD Unavailable Unavailable Allegra CLAY MD Unavailable [...] Karan TEJADA Unavailable Unavailable Cameron-Estela, E Karan TJEADA Unavailable Unavailable Cameron-Estela, E Karan TEJADA Unavailable [...] is protected by Article 27-F of the [facility] Public Health law. If you continue you may have access to information: Regarding HIV / AIDS; Provided by facilities licensed or operated by the [facility] Office of Mental Health; or Provided by the [facility] Office for People With Developmental Disabilities. If such information is present, then the following [facility] mandated warning applies: This information has been [...] law may result in a fine or skilled nursing sentence or both. A general authorization for the release of medical or other information is NOT sufficient authorization for further disc losure. Allergies and Adverse Reactions Type Description Substance Reaction Status Data Source(s ) Drug Class NO KNOWN ALLERGIES NO KNOWN ALLERGIES [facility] Family History Family Member Name Family Member Gender Family Member Status Date o f Status Description Data Source(s) Unknown Unknown Problem [facility], ) Unknown Female Problem MEDENT ([facility] Encounters Encounter Providers Location Date Indications Data Source(s ) Outpatient Referrer: Wendy REEDER 04/07/2020 12:00:00 AM [facility] Outpatient Referrer: Wendy REEDER 02/26/2020 12:00:00 AM T [facility] Outpatient Attender: LUANN GARCIA MD [id number] 01/18 12:00:00 AM EDT - 01/19/2020 11:30:32 AM EDT Other malformations of cerebral vessels [facility] Other malformations of cerebral vessels Outpatient Attender: TRACIE CLAY MD 10/26/2019 09:01:06 P [facility] Outpatient Attender: TRACIE CLAY MD 07/09/2019 12:18:01 P M [facility] Outpatient Attender: TRACIE CLAY MD 07/08/2019 12:33:00 P M [facility] Outpatient Attender: TRACIE CLAY MD 05/26/2019 09:27:01 A M [facility] Outpatient Attender: TRACIE CLAY MD 05/26/2019 09:26:00 A M EST [facility] Outpatient Referrer: Karan Landeros MD 05/18/2019 12: 00:00 AM [facility] Insurance Providers Payer name Policy type / Coverage type Policy ID Covered libertarian ID Covered libertarian's relationship to betancur Policy Betancur Plan Information [employer] COMMUNITY PLAN MCDHMO [id number] SP [id number] [facility]) O [id number] S [id number] UHC I [id number] Self [id number] Managed Care - UHC Community Plan P [id number] S [id number] Medicaid S [id number] S [id number] Managed Care - UHC Community Plan P [id number] S [id number] UNHC COMMUNITY PLAN MCDHMO [id number] SP [id number] Medicaid S [id number] S [id number] Managed Care - UHC Community Plan P [id number] S [id number] Managed Care - [employer] P [id number] S [id number] Medicaid S [id number] S [id number] [facility] Maintenance Organization (HMO) [id number] Self [id number] [employer]HC COMMUNITY PLAN MCDHMO [id number] SP [id number] UHC I [id number] Self [id number] UNHC COMMUNITY PLAN MCDHMO [id number] SP [id number] UNHC COMMUNITY PLAN MCDHMO [id number] SP [id number] UNHC COMMUNITY PLAN MCDHMO [id number] SP [id number] [facility] Medicaid [id number] Self [id number] UNHC COMMUNITY PLAN MCDHMO [id number] SP [id number] UNHC COMMUNITY PLAN MCDHMO [id number] SP [id number] [facility](MCAID) O [id number] S [id number] UNHC COMMUNITY PLAN MCDHMO [id number] SP [id number] [employer] [place] [place] PLAN [id number] SP [id number] MEDICAID [id number] SP [id number] Results ID Date Data Source [id number] 01/19/2020 11:33:46 AM EDT [facility] Name Value Range Interpretation Code Description Data Kirstie rce(s) Supporting Document(s) Progress Note [facility] THNHBx3zZiKKFjOr41/OWOfuKTRts6BuMVqcCBc1JWqeYNCwJ5IrGVL7dV5uXET2NStSEtUzLeDlMZI7 lbm [file] qlH5U6JlP/b5Pd7VES/KbyDM3AzTfkAwfzcg2Cj0+Ely/Myy01hbp7wcddOkNy5g/4p0s96k/YU7Ncj F4TjpDv6FhsIGR6Hb7x4RA4W1fx+XnmaPD5+l/1+/O3j0qHsSJcdG9hgPu5kFo5BZO/A3Zub/WH2l3/G p/hF3i+rImGfca34EpkIVRxdkEmDp86WGQ/sxp29+V OXDv3022l882etyV8KLPBo4pBEgZElV6vPpGeoh+qd0dFGa9QPNAwpeDwTbFMCm0MxULkFC0q56T3H4A /zj3tSWghlBDNQ+N8Mxcabw9REBm9PEcIA8mCk3SKTCdkK87Dg5fBhXPmLjE74y2CWyp/FBBYVV8RJhX QhFE9AkIHwLk4UQjTh1hoPo4Nx68FnJn+n3M6T0+65 E3mfFAuqiA53PV1Mvg7jN998N3Lp3z0THDl1J7L4tXHoZb6sVUP210Qk8/80oZbp5+HJt8NziFWFpBr7 igFDhe3NdJYB80pv+ya2FQmYofDuuv46Q2u5noR8Szuah4dZG32Y3sN7+vXFDgbi5NDjU+i/apOqtZyv ia9ntx2DjlgtU48gzhn5jzu3pmpRzy40LN8aF1HPKH kF1eA1qYoj0P5L1kBCrsG++S0bGX9is8uYzUuWbUbKKmZN/PxVpxlhKqCr11Oj4H5kkCFfq3bYXnrDQ1 qUU21sl4ijUpne6ngDOSC5P/50fu00+iMdpCrPvcPdnHQN+iS/RcbZXXssJ4AlWkPv3TUhUkG0oecC2+ +3yT72Vpz49G9yv7/jj897LfO3FKnlOAv5+3F0tS86 Y2JsFIoVtoC+y9R3U+c8kDvKS6WomCSQvddnRERbalr03udaMOHwrgjh0C+4wEQFNNJw5tZKzBy61w7S OBkG8uAZRtnQuRoD1izqKM6Lk2zrogkZYQZbO9YTBM6OudCfWI7XfumomK+tuB3P1cI1482w7WPSUHPB oYGqrekffmuhJfGPBq/Lo1WnbA1xene7Dfv50i08yI 7bQ5sF/9HCnwyV0MxV4trED0NvHLy0ZPeTxAYJB+gOC3HIrPmQN/MEq3zUyXp9s/g8Jv4ajtpL3EHiI5 x6CMcCLgwqZG3ZICgWOJTufp8gQgnP4tA6Qz0EVGyXB68umUESuuul0dZxaCTkUHJqJelNC8BXYpPiXZ oYhpcF2WJ+wN7RJMgWzrXeHyTINj9EHaSRElNLArtd Jpo7yxTs0rkJC+5ZNENDs2XhUJ+fINRALhgZ+RryASCC/6WFJfg93hALEz2H3XifTTSVsDETrik4UBcV pYm3WoOv/yxAexoq3MDb+r+g7kFzGYNr+fHL7/Lázaro+dsWMVCwp8B8g1jloDa2D/ZrEiaJ34kTa3qHy6D [file] AgICAgICAgICAgICAgICAgICAgICAgICAgICAgICAgICAgICAgICAgICAgICAgICAgICAgICAgICAgIC AgICAgICAgICAgICAgICAgICAgICAgICAgICAgDQog ICAgICAgICAgICAgICAgICAgICAgICAgICAgICAgICAgICAgICAgICAgICAgICAgICAgICAgICAgICAg ICAgICAgICAgICAgICAgICAgICAgICAgICAgICAgICAgICAgICAgDQogICAgICAgICAgICAgICAgICAg ICAgICAgICAgICAgICAgICAgICAgICAgICAgICAgIC AgICAgICAgICAgICAgICAgICAgICAgICAgICAgICAgICAgICAgICAgICAgICAgICAgDQogICAgICAgIC AgICAgICAgICAgICAgICAgICAgICAgICAgICAgICAgICAgICAgICAgICAgICAgICAgICAgICAgICAgIC AgICAgICAgICAgICAgICAgICAgICAgICAgICAgICAg DQogICAgICAgICAgICAgICAgICAgICAgICAgICAgICAgICAgICAgICAgICAgICAgICAgICAgICAgICAg ICAgICAgICAgICAgICAgICAgICAgICAgICAgICAgICAgICAgICAgICAgDQogICAgICAgICAgICAgICAg ICAgICAgICAgICAgICAgICAgICAgICAgICAgICAgIC AgICAgICAgICAgICAgICAgICAgICAgICAgICAgICAgICAgICAgICAgICAgICAgICAgICAgDQogICAgIC AgICAgICAgICAgICAgICAgICAgICAgICAgICAgICAgICAgICAgICAgICAgICAgICAgICAgICAgICAgIC AgICAgICAgICAgICAgICAgICAgICAgICAgICAgICAg ICAgDQogICAgICAgICAgICAgICAgICAgICAgICAgICAgICAgICAgICAgICAgICAgICAgICAgICAgICAg ICAgICAgICAgICAgICAgICAgICAgICAgICAgICAgICAgICAgICAgICAgICAgDQogICAgICAgICAgICAg ICAgICAgICAgICAgICAgICAgICAgICAgICAgICAgIC AgICAgICAgICAgICAgICAgICAgICAgICAgICAgICAgICAgICAgICAgICAgICAgICAgICAgICAgDQogIC AgICAgICAgICAgICAgICAgICAgICAgICAgICAgICAgICAgICAgICAgICAgICAgICAgICAgICAgICAgIC AgICAgICAgICAgICAgICAgICAgICAgICAgICAgICAg OWRvDQCnFSh0U0nsFDGdYHSbAR2tPHq0Jy6+SAzTDiTzTVN8umPnqU4CZP7mm6ZtXCgdETMsn7XqBEf3 BP4AWQWmYCjnHY7OYGqbfd3CYXZgXURdtFCMq3nlHzDmONP6DGQeKspfEJ0GQJBdO5tbroIzXJZiUOON XRjeSUJUDDzwEMAMRV1SClHhL9HyvI21TRTKKj1+DQ qbsaOfQyoZVsHiHURqa2BdCCz0OO4MANCvOuwwb2VvQfJyDZOLSVwgMJ6QDWF8RYW6YXZpDa8XINAaG5 45wvNtWJ8GFt9TMoRiNV6dzh7GOmRsHGUpIbeFPic8GHkpCD1OiPVdANaQhw6jmjLxgfUWp6ZxplOazR CUxKKmtsAPLPI1uWBzRUSXUOUrtKH1QmG5UpIeMpUm TKX7CDEzRD0lGYjeJQ7FJVG0ALvsNVHuRTDaE6sJQdXsQAJxFADwrUtoPR1JUnWoB9RsnoRwmUNbOcMp IFINCj4+BKhzgpYzMxlQAnO2IURmd0ZcLRn8VF2ODSCiIMukRL1TLGRomY6iOWoaIO0MXpHkGBRcVYFE DiFyI20phGQgUNb4J1FdDnQaGXTvClzvUUIhPVefBy FtZXMgWyBdDQogID4+ID4+BOewHF9RBHlckzBxBWItIr0VYAQwKOCnNY8xZKNtVWUmR4P4nMvbCSILOw RiG6oevwozDM5eSCYfZ989dNzlnhJvPUWxKJYgIo6DIAPoTPU6ZWXjeRToOzBvYZHYAAzvFZ0RkEHuYX Q8qQ9vQXlkDWSeJSOiM7gIJvSsiMzcUF19sVjsjhSs bCBdDQo+Az5EIO0yc3NkPXf5mkFhUCimAWI0TDhqGKQlYRHdVUXkLUD5NPD3OOZZOmMkYMKvUYJjETit XVCqMEFeqp9HVSEoDJZnTFc0RZQmHOLmUIXhBBrrUGBqDJP2RxZ7FTQsUTFcGF7LAoJhNQXgSRZwMTbk NJJjEXAoly7VLYExZRWvAOL0RETgQIYpBRKnEGvoVF UpCBG2KRU8DNBnOLEtLK5QIhXaFRKaETirQTaxIYDrPRNqdl3UYFWoZNZuVnT9ArKaEZZxTVZcCHlcTU FsKEU0WsWjVOOuNHQlFO9DCkGxEBFnHVl4YhErHZRpRLNrhh0HRPUtYDYoAPt8JFEmQGOcOZUvRPilQY CcNEHeZGsyOFYbVYDcDK1FSnGiHNLaRFEjBfIgZTHd VIWkyw0POPHwXHOeNaAmJdMrNUYmPMJdTEagIPRrWWNfMKQ7KOJaUWOpWA3VOgPaFYTeLXX0QVGhNNWl OYZrsd5FTDRaCEHpULH7FvBaMJMpAXVyENlbVDZkEBF0DoI8ZQRaCUJdDK2PRgMjQSZrJfH2ZiheOSJv AFFtmx0ISBKsFJLcFOcyLkUmOEIqTDRbNQcfNVFsZF O2UBvbVNQlUQThDO0QFcIcOWOpXeUgYhCuDFWfIVQqfr7IYSAiEFDqBgpcOAUgAPFqUMAuJSzcUSAaIZ A3ORd5XIWaSAYpBO1VEdXwTFChUtzjFNBtCPOsSMSmsr7GoQHsiHthbt3UIGwUZm5CvNnaUIY1ZEzcXo 0oeHOsCEIyJBIKWc5TryKmKQXsVJHSCTklBSGiVWY0 NIUjYAZ3SEItVAA6UDI9LTAiVPc2ORRcQKxeAGKoQfP2TsbsILR8RLyjEZNjZiUbPPqjRQY6UupaRFC5 NzBlYWQ+PQ1cYZc+Zz1Gd0TvcbH1oyAwRMjzQuX0Kd9OQTTQU0TLMa== Procedure Social History Code Duration Value Status Description Data Source(s ) Alcohol intake 01/19/2020 12:00:00 AM EDT Current non-d ruth ann of alcohol (finding) completed Current non-drinker of alcohol (finding) [facility] Tobacco use and exposure 01/19/2020 12:00:00 AM EDT Never used co mpleted Never used [facility] Cigarettes smoked current (pack per day) - Reported 01/19/20 12:00:00 AM EDT UNK completed [facility] Smoking 01/19/2020 12:00:00 AM EDT Current every day smoker co mpleted Current every day smoker [facility] Vital Signs ID Date Data Source [id number] 01/19/2020 11:42:32 AM EDT [facility] Name Value Range Interpretation Code Description Data Source(s) WEIGHT RECORDED [address] lb [address] [facility]
[2020-06-30] MEDS: PANTOPRAZOLE SODIUM 40 MG in D5W 50 ML IV SCH (19:32)
[2020-06-30 21:11] LABS: RSV AMPLIFICATION NEGATIVE (NEGATIVE)
[2020-06-30] MEDS: SUCRALFATE SUSP 1GM/10ML UD PO SCH (21:35)
[2020-07-01 00:13] LABS: HEMATOCRIT 36.4 % (42.0-52.0); HEMOGLOBIN 12.1 g/dl (13.5-17.5)
[2020-07-01 00:15] VITALS: BP 120/71
[2020-07-01] MEDS: PANTOPRAZOLE SODIUM 40 MG in D5W 50 ML IV SCH ×3 (00:30→08:54)
[2020-07-01] MEDS: ONDANSETRON 4MG/2ML VIAL IV SCH ×3 (00:31→12:19)
[2020-07-01 06:00] VITALS: BP 99/54
[2020-07-01 06:28] LABS: BASO % 0.2 % (0.0-1.0); EOS % 0.5 % (0.0-3.0); HEMATOCRIT 36.3 % (42.0-52.0); HEMOGLOBIN 12.2 g/dl (13.5-17.5); LYMPH # 2.2 10^3/uL (1.5-5.0); LYMPH % 26.7 % (24.0-44.0); MEAN CORPUSCULAR HEMOGLOBIN 30.8 pg (27.0-33.0); MEAN CORPUSCULAR HGB CONC 33.6 g/dl (32.0-36.5); MEAN CORPUSCULAR VOLUME 91.7 fl (80.0-96.0); MONO # 0.6 10^3/uL (0.0-0.8); MONO % 7.4 % (0.0-5.0); NEUTROPHILS # 5.3 10^3/uL (1.5-8.5); NEUTROPHILS % 64.8 % (36.0-66.0); PLATELET COUNT, AUTOMATED 240 10^3/uL (150-450); RED BLOOD COUNT 3.96 10^6/uL (4.30-6.10); WHITE BLOOD COUNT 8.1 10^3/uL (4.0-10.0)
[2020-07-01 06:51] LABS: BLOOD UREA NITROGEN 9 MG/DL (7-18); CALCIUM LEVEL 8.9 MG/DL (8.5-10.1); CARBON DIOXIDE LEVEL 23 MEQ/L (21-32); CHLORIDE LEVEL 109 MEQ/L (98-107); CREATININE FOR GFR 1.03 MG/DL (0.70-1.30); GLOMERULAR FILTRATION RATE > 60.0 (>60); GLUCOSE, FASTING 102 MG/DL (70-100); POTASSIUM SERUM 4.3 MEQ/L (3.5-5.1); SODIUM LEVEL 142 MEQ/L (136-145)
[2020-07-01 07:42] LABS: LIPASE 66 U/L (73-393)
[2020-07-01] MEDS: SUCRALFATE SUSP 1GM/10ML UD PO SCH ×2 (08:53→12:19)
[2020-07-01] MEDS ORDERED: SUCR1TA PO (10:34)
[2020-07-01] MEDS ORDERED: PANT40TA29 PO (10:34)
[2020-07-01] MEDS ORDERED: ONDA4TAB6 PO (10:36)
--- NOTE | 2020-07-01 10:57 | DS.PDOC ---
Discharge Summary General Date of Admission Jun 30, 2020 at 18:17 Date of Discharge 07/01/20 Discharge Summary PROCEDURES PERFORMED DURING STAY: [None]. DISCHARGE DIAGNOSES: Acute Gastritis/ PUD with bleeding SECONDARY DIAGNOSIS: Chiari malformation Brain surgery in 2018 and evacuation of blood clot at the left post neck/ Sub occipital craniotomy with A mesh prosthesis at the craniectomy site. h/o pancreatitis kidney stones asthma right occipital neuralgia. Anger issues COMPLICATIONS/CHIEF COMPLAINT: Acute Gastritis With Bleeding. HOSPITAL COURSE: 44 year old male presented to [facility] ED with abdominal pain, chest pain and vomiting of blood which started suddenly this morning. Patient reports he woke up this morning with sudden onset lower chest and left upper abdominal pain, he started coughing and then started vomiting blood. The blood was Coffee ground colored. His pain is located in the epigastrium and left upper quadrant, constant sharp rates it at 10/10 intensity. He continued to have intractable vomiting in the ED with small amounts of coffee grounds in it at per ED provider. He denied any diarrhea or niall. He had CT abd and pel with contrast and CTA of chest both of which were negative for any acute findings. No pancreatic inflammation or kidney stones seen. His lipase was mildly elevated at 513 and WBC at 13.3, his initial lactate was 2.9 then repeat was 1.9. He is mostly likely having acute gastritis with some bleeding due to gastric erosions or ulceration. Acute gastritis/ peptic ulcer disease HH stable no further coffee ground emesis after admission. PPI, Sucralfate and zofran. Chronic abdominal pain he carries a h/o pancreatitis, he was never a drinker, right now his lipase is mildly elevated to 513 i do not think he has any acute pancreatitis. CT scan did not suggest of any changes in the pancreas suggestive of chronic pancreatitis. this is probably elevated due to gastritis/ duodenitis. DISCHARGE MEDICATIONS: Please see below. ALLERGIES: Please see below. PHYSICAL EXAMINATION ON DISCHARGE: VITAL SIGNS: Please see below. General Exam: Positive: Alert, Cooperative, Mild Distress Eye Exam: Positive: PERRLA, Conjunctiva & lids normal, EOMI; Negative: Sclera icteric ENT Exam: Positive: Atraumatic, Mucous membr. moist/pink, Pharynx Normal Neck Exam: Positive: Supple; Negative: JVD, thyromegaly Chest Exam: Positive: Clear to auscultation, Normal air movement Heart Exam: Positive: Rate Normal, Regular Rhythm, Normal S1, Normal S2; Negative: Murmurs, Rubs Abdomen Exam: Positive: BS Hypoactive, Soft, Tenderness (epigastric and left upper abdomen) Extremity Exam: Positive: Normal pulses; Negative: Clubbing, Cyanosis, Edema Skin Exam: Positive: Nl turgor and temperature; Negative: Breakdown, Lesion LABORATORY DATA: Please see below. IMAGING: CT abd and pelvis with IV contrast Preliminary digital carrier associate radiograph shows an unremarkable bowel gas pattern. The liver and the spleen are normal in size homogeneous in texture. There appears to be mild fatty infiltration of the liver. There is a tiny subcentimeter cysts in the right lobe anteriorly. No abnormality is noted in the gallbladder. The pancreas is morphologically intact. No adrenal lesion is seen on either side. There is no evidence of upper abdominal ascites. Kidneys enhance symmetrically and are morphologically intact. No retroperitoneal mass or adenopathy is observed. There is an accessory lower pole right renal artery. Normal caliber aorta. The left gastric artery takes a direct aortic origin. This is a normal variant. No other visce ral vascular abnormality is observed. Small and large intestinal bowel loops are unremarkable. Normal appendix is seen in the right lower quadrant medial to the cecum. No abdominal wall defect is seen. No bony destructive lesion is observed. The lung bases are clear. IMPRESSION: Negative CT abdomen and pelvis with IV contrast. No acute abnormality seen CTA of Chest: FINDINGS: There is good opacification in the pulmonary arterial tree. There is no evidence of vessel cut off or filling defect to suggest pulmonary embolus. Homogeneous opacity is seen in the thoracic aorta. There is no evidence of aneurysm or dissection. Lung window settings demonstrate clear well inflated lung hanson. There is no evidence of infiltrate, mass, atelectasis, or significant pulmonary nodule. No hilar or mediastinal mass or adenopathy is seen. No pleural or pericardial effusion is noted. In the upper abdomen, normal adrenal glands are seen. The visualized upper abdominal structures are unremarkable. IMPRESSION: No CT evidence of pulmonary embolus. Negative CT pulmonary angiogram. CT Head; Bone window settings demonstrate that the patient is status post suboccipital craniotomy. A mesh prosthesis is seen at the craniectomy site. Bony calvarium is otherwise intact. Visualized paranasal sinuses are clear. No intraorbital abnormality is seen. On soft tissue window settings, the lateral, 3rd, and 4th ventricles are normal in size and position. Macdonald-white differentiation pattern is intact above and below the tentorium. There is no evidence of intracranial hemorrhage. No infarct, mass, extra-axial fluid collection or midline shift is seen. IMPRESSION: Status post suboccipital craniotomy. Otherwise normal head CT. Unchanged from comparison study. No acute intracranial abnormality.. ACTIVITY: [As tolerated]. DIET: [place] diet for 2 weeks then regular. DISCHARGE PLAN: Home DISPOSITION: . DISCHARGE INSTRUCTIONS: PMD in 1 to 2 weeks DISCHARGE CONDITION: [Stable]. TIME SPENT ON DISCHARGE: 35 minutes. Vital Signs/I&Os Vital Signs Date Time Temp Pulse Resp B/P (MAP) Pulse Ox O2 Delivery O2 Flow Rate FiO2 07/01/20 06:00 98.9 43 18 99/54 (69) 96 Room Air I&O- Last 24 Hours up to 6 AM 07/01/20 06:00 Intake Total 1650 ml Output Total 325 ml Balance 1325 ml Laboratory Data Labs 24H Laboratory Tests 2 06/30/20 13:14: Immature Granulocyte % (Auto) 0.5, Neutrophils (%) (Auto) 78.5H, Lymphocytes (%) (Auto) 15.8L, Monocytes (%) (Auto) 4.1, Eosinophils (%) (Auto) 0.6, Basophils (%) (Auto) 0.5, Neutrophils # (Auto) 10.5H, Lymphocytes # (Auto) 2.1, Monocytes # (Auto) 0.5, Eosinophils # (Auto) 0.1, Basophils # (Auto) 0.1, Nucleated Red Blood Cells % (auto) 0.0, Anion Gap 10, Glomerular Filtration Rate > 60.0, Lactic Acid Level 2.3*H, Calcium Level 9.4, Total Bilirubin 0.5, Direct Bilirubin 0.2, Aspartate Amino Transf (AST/SGOT) 11, Alanine Aminotransferase (ALT/SGPT) 15, Alkaline Phosphatase 79, Total Creatine Kinase 163, Creatine Kinase MB 1.4, Creatine Kinase MB Relative Index 0.86, Troponin I < 0.02, Total Protein 7.1, Albumin 4.2, Albumin/Globulin Ratio 1.4, Lipase 531H 06/30/20 17:38: Coronavirus (COVID-19)(PCR) NEGATIVE, Influenza Type A (RT-PCR) NEGATIVE, Influenza Type B (RT-PCR) NEGATIVE, Respiratory Syncytial Virus (PCR) NEGATIVE 06/30/20 17:40: Urine Color YELLOW, Urine Appearance CLEAR, Urine pH 9.0, Urine Specific [place] >1.060H, Urine Protein NEGATIVE, Urine Glucose (UA) NEGATIVE, Urine Ketones TRACEH, Urine Blood NEGATIVE, Urine Nitrite NEGATIVE, Urine Bilirubin NEGATIVE, Urine Urobilinogen 0.2, Urine Leukocyte Esterase NEGATIVE, Urine WBC (Auto) 0, U rine RBC (Auto) 1, Urine Hyaline Casts (Auto) 0, Urine Bacteria (Auto) NEGATIVE, Urine Squamous Epithelial Cells 0, Urine Sperm (Auto) 06/30/20 17:43: Lactic Acid Followup at 4 Hours 1.9 07/01/20 06:00: Immature Granulocyte % (Auto) 0.4, Neutrophils (%) (Auto) 64.8, Lymphocytes (%) (Auto) 26.7, Monocytes (%) (Auto) 7.4H, Eosinophils (%) (Auto) 0.5, Basophils (%) (Auto) 0.2, Neutrophils # (Auto) 5.3, Lymphocytes # (Auto) 2.2, Monocytes # (Auto) 0.6, Eosinophils # (Auto) 0.0, Basophils # (Auto) 0.0, Nucleated Red Blood Cells % (auto) 0.0, Anion Gap 10, Glomerular Filtration Rate > 60.0, Calcium Level 8.9, Lipase 66L CBC/BMP Laboratory Tests 06/30/20 13:14 06/30/20 23:38 07/01/20 06:00 Discharge Medications Scheduled Pantoprazole Sodium (Pantoprazole Sodium) 40 Mg Tablet.dr, 40 MG PO BID Sucralfate (Sucralfate) 1 Gm Tablet, 1 GM PO ACHS Scheduled PRN Ondansetron (Ondansetron Odt) 4 Mg Tab.rapdis, 4 MG PO Q6-8HP PRN for nausea/vomiting Allergies Coded Allergies: No Known Allergies (Unverified , 01/06/19) YASMEEN THOMAS MD Jul 01, 2020 10:57
== END 2020-07-01 12:35 | disposition home or self-care (01) | DRG 241 ==
LOC: EDBD 12:26 → M ED 12:26 → M ED INP 18:17 → M MS5PR 07-01 00:10
PROVIDERS: ADMIT Internal Medicine Nephrology; ATTEND Internal Medicine Nephrology
DX: K29.71 Gastritis, unspecified, with bleeding (principal); K86.1 Other chronic pancreatitis; J45.909 Unspecified asthma, uncomplicated; M54.81 Occipital neuralgia; K27.0 Acute peptic ulcer, site unspecified, with hemorrhage

== ENCOUNTER 2020-08-27 18:12 | Emergency (ER) | payer OTHER ==
[~2020-08-27] VITALS: Ht 175.3 cm; Wt 66.2 kg
[~2020-08-27 18:12] MED LIST changes: +ONDA4TAB6 PO; +PANT40TA29 PO; +SUCR1TA PO
[2020-08-27 18:48] LABS: BASO % 0.4 % (0.0-1.0); EOS # 0.2 10^3/uL (0.0-0.5); EOS % 2.2 % (0.0-3.0); HEMOGLOBIN 13.3 g/dl (13.5-17.5); LYMPH # 2.4 10^3/uL (1.5-5.0); LYMPH % 26.7 % (24.0-44.0); MEAN CORPUSCULAR HEMOGLOBIN 30.9 pg (27.0-33.0); MEAN CORPUSCULAR HGB CONC 33.3 g/dl (32.0-36.5); MEAN CORPUSCULAR VOLUME 92.8 fl (80.0-96.0); MONO # 0.6 10^3/uL (0.0-0.8); MONO % 6.3 % (2.0-8.0); NEUTROPHILS # 5.7 10^3/uL (1.5-8.5); NEUTROPHILS % 64.1 % (36.0-66.0); PLATELET COUNT, AUTOMATED 276 10^3/uL (150-450); RED BLOOD COUNT 4.31 10^6/uL (4.30-6.10); WHITE BLOOD COUNT 8.9 10^3/uL (4.0-10.0)
[2020-08-27] MEDS ORDERED: GI COCKTAIL 50ML BTL(HYOSCYAMINE/MAALOX/LIDOCAINE VISCOUS)(1:3:1) PO ONE (19:00)
[2020-08-27 19:08] LABS: BLOOD UREA NITROGEN 11 MG/DL (7-18); CALCIUM LEVEL 8.5 MG/DL (8.5-10.1); CARBON DIOXIDE LEVEL 29 MEQ/L (21-32); CHLORIDE LEVEL 108 MEQ/L (98-107); CREATININE FOR GFR 1.16 MG/DL (0.70-1.30); GLOMERULAR FILTRATION RATE > 60.0 (>60); GLUCOSE, FASTING 95 MG/DL (70-100); SODIUM LEVEL 141 MEQ/L (136-145)
--- NOTE | 2020-08-27 19:21 | REP ---
INDICATION: CHEST PAIN. COMPARISON: Comparison chest x-ray 30 June 2020. TECHNIQUE: Portable upright AP chest radiograph. FINDINGS: There is a small left apical pneumothorax. There is no evidence of mediastinal shift. Lung hanson are otherwise clear. Right lung is clear. Heart is not enlarged.. IMPRESSION: Small left apical pneumothorax. Otherwise no acute disease.. <Electronically signed by Eben Matthews > 08/27/201917
[2020-08-27 19:38] LABS: CK-MB VALUE MASS 1.2 NG/ML (<3.6); CPK CREATINE PHOSPHOKINASE 288 U/L (39-308); MB/CK RELATIVE INDEX 0.42 (< OR =4); TROPONIN I < 0.02 NG/ML (< 0.10)
[2020-08-27] MEDS ORDERED: HYDR-3713 PO (19:51)
[2020-08-27] MEDS ORDERED: NORCO 5/325MG TABLET (BULK FOR ED) PO ONE (19:55)
[2020-08-27 20:00] VITALS: BP 142/99
--- NOTE | 2020-08-28 07:39 | ECGEPIP ---
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
== END 2020-08-27 20:10 | disposition home or self-care (01) ==
LOC: M ED 18:12
DX: J93.9 Pneumothorax, unspecified (principal); K21.9 Gastro-esophageal reflux disease without esophagitis; J44.9 Chronic obstructive pulmonary disease, unspecified; F17.200 Nicotine dependence, unspecified, uncomplicated; Z79.899 Other long term (current) drug therapy

== ENCOUNTER 2020-08-29 15:25 | Emergency (ER) | payer OTHER ==
[~2020-08-29] VITALS: Ht 175.3 cm; Wt 65.6 kg
[~2020-08-29 15:25] MED LIST changes: +HYDR-3713 PO
[2020-08-29 15:26] VITALS: BP 129/86
--- NOTE | 2020-08-29 16:01 | REP ---
INDICATION: recheck pneumo. COMPARISON: Comparison chest x-ray August 27, 2020. TECHNIQUE: Two views.. FINDINGS: Two views of the chest again demonstrate a small left-sided pneumothorax. This is a little larger than on the prior study. There is some new pleural air visible along the left lateral and lower lateral rib cage on today's chest x-ray. Right lung is clear. No infiltrate is seen. Heart is not enlarged. IMPRESSION: Small left-sided pneumothorax, increased slightly in the interval since the 08/27/2020 study.. <Electronically signed by Eben Matthews > 08/29/20 [id number]
[2020-08-29] MEDS ORDERED: PANT40TA29 PO (19:17)
[2020-08-29] MEDS ORDERED: SUCR1TAB56 PO (19:17)
[2020-08-29] MEDS ORDERED: HYDR-3713 PO (19:17)
[2020-08-29] MEDS ORDERED: ONDA4TAB6 PO (19:17)
--- NOTE | 2020-08-29 19:57 | IPNPDOC ---
Text Note Date of Service The patient was seen on 08/29/20. NOTE I was informed by Jaron Diez that the patient left AMA before we could see him. VS,Fishbone, I+O VS, Fishbone, I+O Vital Signs Date Time Temp Pulse Resp B/P (MAP) Pulse Ox O2 Delivery O2 Flow Rate FiO2 08/29/20 18:36 Automatic Cuff (NIBP) 08/29/20 15:26 98.7 68 18 99 Room Air NORA GARCIA MD Aug 29, 2020 19:57
== END 2020-08-29 19:40 | disposition left against medical advice (07) ==
LOC: M ED 15:25
DX: J93.9 Pneumothorax, unspecified (principal); Z53.9 Procedure and treatment not carried out, unspecified reason

== ENCOUNTER 2020-08-30 09:54 | Emergency (ER) | payer OTHER ==
[~2020-08-30] VITALS: Ht 175.3 cm; Wt 67.8 kg
--- NOTE | 2020-08-30 10:31 | REP ---
INDICATION: Follow-up left pneumothorax. COMPARISON: 08/29/2020, 08/27/2020 TECHNIQUE: Two-view chest FINDINGS: The small left apical pneumothorax is again noted. Has a vertical diameter of approximately 42 mm the apex measure from the same point on the previous study at 40 mm and on 08/27/2020 at 35 mm. The pneumothorax laterally at the base is slightly smaller. I do not see any midline shift or tension component. There is no pneumopericardium or pneumomediastinum evident. Trace air-fluid level at the left CP angle on the frontal view and seen anteriorly on the lateral view. Lungs are otherwise clear. The heart and mediastinal contours were normal. Bony thorax shows no compression deformity or focal lesion. No free air under the diaphragm. IMPRESSION: Small left apical and lateral basilar pneumothorax. Increased by just 2 mm at the left apex and visually slightly smaller at the left base with a tiny air-fluid level anterolaterally. No tension component or mediastinal shift. No other finding. <Electronically signed by Facundo aWll > 08/30/20 102
--- NOTE | 2020-08-30 11:11 | REP ---
INDICATION: pneumothorax COMPARISON: None TECHNIQUE: Axial noncontrast images from the thoracic inlet to the upper abdomen with coronal and sagittal reformations. This CT examination was performed using the following dose reduction techniques: Automated exposure control, adjustment of mA and/or kv according to the patient's size, and use of iterative reconstruction technique. FINDINGS: There is a small/moderate left pneumothorax of roughly 15%. Associated mild left basilar atelectasis is appreciated. Right hemithorax demonstrates mild emphysematous changes along with minimal right apical scarring. Tracheobronchial tree is patent. The mediastinum is relatively normal. No obvious adenopathy. Surrounding musculoskeletal structures are intact. IMPRESSION: Left-sided pneumothorax of approximately 15% volume. Associated mild left basilar atelectasis. <Electronically signed by Matrin Banks > 08/30/20 1104
[2020-08-30 11:32] VITALS: BP 99/63
== END 2020-08-30 11:45 | disposition home or self-care (01) ==
LOC: M ED 09:54
DX: J93.9 Pneumothorax, unspecified (principal); J98.11 Atelectasis; F17.200 Nicotine dependence, unspecified, uncomplicated

== ENCOUNTER → 2020-09-12 | Outpatient (CLI) | payer OTHER ==
--- NOTE | 2020-09-12 10:30 | REPPI ---
INDICATION: SPONTANEOUS PNEUMOTHORAX COMPARISON: 08/30/2020 TECHNIQUE: PA and lateral. FINDINGS: Miniscule residual left apical pneumothorax measuring roughly 8 mm to the left apex. The lung hanson are otherwise well aerated and clear. Mediastinum and cardiac silhouette are normal. Skeletal structures are intact. IMPRESSION: Miniscule residual left apical pneumothorax. <Electronically signed by Martin Banks > 09/12/20 102
== END ==
LOC: M PLAIMG 09:09
PROVIDERS: ATTEND Student in an Organized Health Care Education/Training Program
DX: J93.83 Other pneumothorax (principal)

== ENCOUNTER → 2020-09-13 | Outpatient (REF) | payer OTHER | LOC: M SFHCPLAZ 10:05 | PROVIDERS: ATTEND Student in an Organized Health Care Education/Training Program | DX: B07.9 Viral wart, unspecified (principal) ==

== ENCOUNTER 2020-10-25 05:27 | Emergency (ER) | payer OTHER ==
[~2020-10-25] VITALS: Ht 177.8 cm; Wt 64.2 kg
[2020-10-25] MEDS ORDERED: COMBIVENT RESPIMAT 100-20MCG INHALER 4GM INH ONE (07:15)
[2020-10-25] MEDS ORDERED: ONDANSETRON 4MG/2ML VIAL IV ONE (07:15)
[2020-10-25] MEDS ORDERED: NS 1,000 ML IV ONE (07:15)
[2020-10-25 07:57] LABS: HEMATOCRIT 40.4 % (42.0-52.0); MEAN CORPUSCULAR HEMOGLOBIN 30.8 pg (27.0-33.0); MEAN CORPUSCULAR HGB CONC 34.7 g/dl (32.0-36.5); PLATELET COUNT, AUTOMATED 172 10^3/uL (150-450); RED BLOOD COUNT 4.54 10^6/uL (4.30-6.10); WHITE BLOOD COUNT 5.3 10^3/uL (4.0-10.0)
[2020-10-25 08:19] LABS: ATYPICAL LYMPH 1 % (0-5); BASOPHILS 1 % (0-1); EOSINOPHILS 3 % (0-3); LYMPHOCYTES 12 % (16-44); MONOCYTES 8 % (0-5); NEUTROPHILS 75 % (28-66); PLATELET ESTIMATE NORMAL (NORMAL)
[2020-10-25 08:21] LABS: ALBUMIN 3.7 GM/DL (3.2-5.2); ALT/SGPT 23 U/L (12-78); BILIRUBIN,DIRECT 0.2 MG/DL (0.0-0.2); BILIRUBIN,TOTAL 0.5 MG/DL (0.2-1.0); BLOOD UREA NITROGEN 16 MG/DL (7-18); CALCIUM LEVEL 8.6 MG/DL (8.5-10.1); CARBON DIOXIDE LEVEL 23 MEQ/L (21-32); CHLORIDE LEVEL 103 MEQ/L (98-107); CK-MB VALUE MASS < 1.0 NG/ML (<3.6); CPK CREATINE PHOSPHOKINASE 605 U/L (39-308); CREATININE FOR GFR 0.96 MG/DL (0.70-1.30); GLOMERULAR FILTRATION RATE > 60.0 (>60); GLUCOSE, FASTING 94 MG/DL (70-100); LIPASE 48 U/L (73-393); MB/CK RELATIVE INDEX 0.17 (< OR =4); POTASSIUM SERUM 3.6 MEQ/L (3.5-5.1); SODIUM LEVEL 135 MEQ/L (136-145); TROPONIN I < 0.02 NG/ML (< 0.10)
[2020-10-25 08:31] LABS: RSV AMPLIFICATION NEGATIVE (NEGATIVE)
--- NOTE | 2020-10-25 08:35 | REP ---
INDICATION: cough, abd pain, hx gastric ulcer COMPARISON: None. TECHNIQUE: Upright view of the chest with supine and upright views of the abdomen and pelvis. FINDINGS: Frontal upright view of the chest demonstrates subtle rounded opacities primarily in the left mid lung zone suspicious for acute multifocal infiltrates. No free air below the diaphragm to suspect pneumoperitoneum. Supine and upright views of the abdomen and pelvis demonstrate nonspecific bowel gas pattern without obstruction or perforation. No organomegaly. No abnormal calcifications. Skeletal structures normal for age. IMPRESSION: Questionable multifocal airspace disease (left greater than right). Nonspecific bowel gas pattern. <Electronically signed by Martin Banks > 10/25/20 0850
[2020-10-25] MEDS ORDERED: VENTAER INH (09:12)
[2020-10-25] MEDS ORDERED: AUGM875T28 PO (09:12)
[2020-10-25] MEDS ORDERED: ONDA4TAB6 PO (09:12)
[2020-10-25] MEDS ORDERED: BENZ200C70 PO (09:12)
[2020-10-25 09:18] VITALS: BP 134/84
--- NOTE | 2020-10-25 21:34 | ECGEPIP ---
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 Order Number: [id number] Reading MD: Mirna Price Measurements Intervals [place] Rate: 72 P: 83 [place]: 146 QRS: 210 QRSD: 82 T: 69 QT: 370 QTc: 405 Interpretive Statements Normal sinus rhythm Indeterminate axis Pulmonary disease pattern increased rate 08/27/20 Electronically Signed on 10-25-2020 21:34:26 EDT by Mirna Price
== END 2020-10-25 09:20 | disposition home or self-care (01) ==
LOC: M ED 05:27
DX: J20.9 Acute bronchitis, unspecified (principal); R11.2 Nausea with vomiting, unspecified; F17.200 Nicotine dependence, unspecified, uncomplicated
CPT/HCPCS: 74021; 80048; 80076; 82550; 82553; 83690; 85025; 87631; 93005; 94640; 96361; 96374; 99284; J2405

== ENCOUNTER → 2021-01-02 | Outpatient (CLI) | payer OTHER ==
[~2021-01-02] MED LIST changes: +AUGM875T28 PO; +BENZ200C70 PO; +OMEP40CA4 PO; -OMEP40CA97 PO; +PROHANCE 279.3MG/ML 15ML VIAL As Ordered ONE; +VENTAER INH
--- NOTE | 2021-01-02 13:02 | REPVR ---
PROCEDURE INFORMATION: Exam: MR Head Without and With Contrast Exam date and time: 01/02/2021 12:30 PM Age: 45 years old Clinical indication: Condition or disease; Prior surgery; Surgery date: 6+ months; Surgery type: Ressection of cavernoma; Patient HX: Other malformations of cerebral vessels TECHNIQUE: Imaging protocol: MR of the head without and with intravenous contrast. Contrast material: PROHANCE; Contrast volume: 13 ml; Contrast route: INTRAVENOUS (IV); COMPARISON: 1. CT Head without contrast 06/30/2020 2:50 PM 2. MRI-Brain W/O FOLL BY WITH 01/15/2020 11:36:00 AM The reports from the previous exams or not immediately available. FINDINGS: Brain: Hemosiderin deposition is present within the inferior left cerebellar hemisphere. 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 There is no acute intracranial hemorrhage, cerebral edema, or midline shift. No restricted diffusion is present to suggest acute infarction. Cerebral ventricles: No hydrocephalus. Bones/joints: A midline inferior occipital craniectomy and cranioplasty is present. Paranasal sinuses: Normal as visualized. No acute sinusitis. Mastoid air cells: Normal as visualized. No mastoid effusion. Orbital cavity: Unremarkable. Soft tissues: Unremarkable. IMPRESSION: 1. No acute abnormality. 2. Chronic findings as discussed above. Electronically signed by: Yanick Levin On 01/02/2021 13:02:02 PM
== END ==
LOC: M RAD 10:57
PROVIDERS: ATTEND Neurological Surgery
DX: Q28.3 Other malformations of cerebral vessels (principal); M54.81 Occipital neuralgia
CPT/HCPCS: 70553; A9576

== ENCOUNTER → 2022-01-04 | Outpatient (CLI) | payer OTHER ==
[~2022-01-04] MED LIST changes: +ALBU2.5V10 INH; -ALBU83IN INH; -PROHANCE 279.3MG/ML 15ML VIAL As Ordered ONE
== END ==
LOC: M LABSMTC 09:13
PROVIDERS: ATTEND Anesthesiology
DX: Z01.818 Encounter for other preprocedural examination (principal); Z11.52 Encounter for screening for COVID-19

== ENCOUNTER → 2022-03-29 | Outpatient (CLI) | payer OTHER | LOC: M PLARAD 12:11 | PROVIDERS: ATTEND Neurological Surgery | DX: Q28.3 Other malformations of cerebral vessels (principal) ==

== ENCOUNTER → 2022-07-05 | Outpatient (CLI) | payer OTHER ==
[2022-07-05 14:30] LABS: HEMATOCRIT 43.5 % (42.0-52.0); HEMOGLOBIN 14.3 g/dl (13.5-17.5); MEAN CORPUSCULAR HEMOGLOBIN 31.4 pg (27.0-33.0); MEAN CORPUSCULAR HGB CONC 32.9 g/dl (32.0-36.5); MEAN CORPUSCULAR VOLUME 95.4 fl (80.0-96.0); PLATELET COUNT, AUTOMATED 256 10^3/uL (150-450); RED BLOOD COUNT 4.56 10^6/uL (4.30-6.10); WHITE BLOOD COUNT 4.8 10^3/uL (4.0-10.0)
[2022-07-05 14:53] LABS: LIPASE 366 U/L (12-53)
[2022-07-05 14:55] LABS: AMYLASE 167 U/L (30-118)
[2022-07-05 14:56] LABS: ALBUMIN 4.1 G/DL (3.2-5.2); ALKALINE PHOSPHATASE 89 U/L (46-116); ALT/SGPT 15 U/L (7.0-40); AST/SGOT 16 U/L (<34); BILIRUBIN,TOTAL 0.7 MG/DL (0.3-1.2); BLOOD UREA NITROGEN 14 MG/DL (9-23); CALCIUM LEVEL 8.9 MG/DL (8.5-10.1); CARBON DIOXIDE LEVEL 30 MMOL/L (20-31); CHLORIDE LEVEL 109 MMOL/L (98-107); CREATININE FOR GFR 1.09 MG/DL (0.70-1.30); GLOMERULAR FILTRATION RATE > 60.0 (>60); GLUCOSE, FASTING 91 MG/DL (60-100); POTASSIUM SERUM 5.1 MMOL/L (3.5-5.1); SODIUM LEVEL 139 MMOL/L (136-145)
== END ==
LOC: M PLALAB 09:29
PROVIDERS: ATTEND Student in an Organized Health Care Education/Training Program
DX: R10.9 Unspecified abdominal pain (principal)

== ENCOUNTER → 2022-07-18 | Outpatient (CLI) | payer OTHER | LOC: M RAD 06:43 | PROVIDERS: ATTEND Student in an Organized Health Care Education/Training Program | DX: R74.8 Abnormal levels of other serum enzymes (principal) ==

== ENCOUNTER → 2022-08-01 | Outpatient (CLI) | payer OTHER | LOC: M PLAIMG 12:51 | PROVIDERS: ATTEND Student in an Organized Health Care Education/Training Program | DX: R74.8 Abnormal levels of other serum enzymes (principal) ==

== ENCOUNTER → 2022-08-23 | Outpatient (REF) | payer OTHER | LOC: M SFHCPLAZ 13:19 | PROVIDERS: ATTEND Family Medicine | DX: L72.0 Epidermal cyst (principal) ==

== ENCOUNTER → 2022-09-05 | Outpatient (REF) | payer OTHER | LOC: M SFHCPLAZ 09:50 | PROVIDERS: ATTEND Family Medicine | DX: Z53.9 Procedure and treatment not carried out, unspecified reason (principal) ==

== ENCOUNTER → 2022-09-05 | Outpatient (CLI) | payer OTHER ==
[2022-09-05 15:25] LABS: LIPASE 79 U/L (12-53)
[2022-09-05 15:27] LABS: ALBUMIN 4.1 G/DL (3.2-5.2); ALKALINE PHOSPHATASE 89 U/L (46-116); ALT/SGPT 12 U/L (7.0-40); AST/SGOT < 8 U/L (<34); BILIRUBIN,DIRECT 0.1 MG/DL (<0.4); BILIRUBIN,TOTAL 0.3 MG/DL (0.3-1.2); TOTAL PROTEIN 6.7 G/DL (5.7-8.2)
== END ==
LOC: M PLALAB 09:58
PROVIDERS: ATTEND Family Medicine
DX: K86.1 Other chronic pancreatitis (principal)

== ENCOUNTER → 2022-09-19 | Outpatient (CLI) | payer OTHER ==
[~2022-09-19] MED LIST changes: +E-Z-GAS II EFFERVESCENT PACKET (SODIUM BICARB./CITRIC ACID/SIMETHICONE) As Ordered ONE; +E-Z-HD 98% w/w 340GM SUSP BTL As Ordered ONE; +E-Z-PAQUE 96% w/w SUSP 176GM BTL As Ordered ONE
== END ==
LOC: M RAD 08:01
PROVIDERS: ATTEND Student in an Organized Health Care Education/Training Program
DX: R09.89 Other specified symptoms and signs involving the circulatory and respiratory systems (principal); K44.9 Diaphragmatic hernia without obstruction or gangrene

== ENCOUNTER → 2023-03-29 | Outpatient (CLI) | payer OTHER ==
[~2023-03-29] MED LIST changes: -E-Z-GAS II EFFERVESCENT PACKET (SODIUM BICARB./CITRIC ACID/SIMETHICONE) As Ordered ONE; -E-Z-HD 98% w/w 340GM SUSP BTL As Ordered ONE; -E-Z-PAQUE 96% w/w SUSP 176GM BTL As Ordered ONE
== END ==
LOC: M RAD 15:32
PROVIDERS: ATTEND Student in an Organized Health Care Education/Training Program
DX: R91.8 Other nonspecific abnormal finding of lung field (principal)

== ENCOUNTER → 2023-07-18 | Outpatient (CLI) | payer OTHER | LOC: M PLARAD 10:10 | PROVIDERS: ATTEND Neurological Surgery | DX: Q28.3 Other malformations of cerebral vessels (principal) ==

== ENCOUNTER 2023-12-09 09:26 | Emergency (ER) | payer OTHER, SELFPAY ==
[~2023-12-09] VITALS: Ht 175.3 cm; Wt 66.7 kg
[~2023-12-09 09:26] MED LIST changes: +ONDA-282 PO; -ONDA4TAB6 PO
[2023-12-09] MEDS ORDERED: IBUP80TA (09:36)
[2023-12-09] MEDS: methocarbamoL 500 MG TAB PO ONE (11:15)
[2023-12-09] MEDS: LIDOCAINE 5% (LIDODERM) PATCH TD ONE (11:15)
[2023-12-09] MEDS: KETOROLAC 30 MG/ML 1ML VIAL IM ONE (11:36)
[2023-12-09] MEDS ORDERED: LIDO5DIS41 TD (12:36)
[2023-12-09] MEDS ORDERED: NAPR-837 PO (12:36)
[2023-12-09] MEDS ORDERED: METH-1164 PO (12:36)
[2023-12-09 12:42] VITALS: BP 125/76; TEMP 97; O2SAT 99
== END 2023-12-09 12:45 | disposition home or self-care (01) ==
LOC: M ED 09:26
DX: M25.511 Pain in right shoulder (principal); I45.10 Unspecified right bundle-branch block; R00.1 Bradycardia, unspecified; J44.9 Chronic obstructive pulmonary disease, unspecified; F17.200 Nicotine dependence, unspecified, uncomplicated; Z79.1 Long term (current) use of non-steroidal anti-inflammatories (NSAID); Z79.899 Other long term (current) drug therapy
CPT/HCPCS: 73030; 93005; 96372; 99284; J1885

== ENCOUNTER → 2024-01-15 | Outpatient (CLI) | payer OTHER ==
[~2024-01-15] MED LIST changes: +IBUP80TA; +LIDO5DIS41 TD; +METH-1164 PO; +NAPR-837 PO
== END ==
LOC: M RAD 14:38
PROVIDERS: ATTEND Student in an Organized Health Care Education/Training Program
DX: R91.8 Other nonspecific abnormal finding of lung field (principal)

== ENCOUNTER → 2024-02-26 | Outpatient (CLI) | payer OTHER ==
[2024-02-26 14:06] LABS: BASO # 0.1 10^3/uL (0.0-0.2); BASO % 1.1 % (0.0-1.0); EOS # 0.2 10^3/uL (0.0-0.5); EOS % 3.7 % (0.0-3.0); HEMATOCRIT 42.3 % (42.0-52.0); HEMOGLOBIN 14.1 g/dl (13.5-17.5); LYMPH # 2.6 10^3/uL (1.5-5.0); LYMPH % 47.8 % (24.0-44.0); MEAN CORPUSCULAR HEMOGLOBIN 31.1 pg (27.0-33.0); MEAN CORPUSCULAR HGB CONC 33.3 g/dl (32.0-36.5); MEAN CORPUSCULAR VOLUME 93.4 fl (80.0-96.0); MONO # 0.5 10^3/uL (0.0-0.8); MONO % 8.6 % (2.0-8.0); NEUTROPHILS # 2.1 10^3/uL (1.5-8.5); NEUTROPHILS % 38.4 % (36.0-66.0); PLATELET COUNT, AUTOMATED 277 10^3/uL (150-450); RED BLOOD COUNT 4.53 10^6/uL (4.30-6.10); WHITE BLOOD COUNT 5.4 10^3/uL (4.0-10.0)
[2024-02-26 14:32] LABS: ALKALINE PHOSPHATASE 81 U/L (46-116); ALT/SGPT 10 U/L (7.0-40); AST/SGOT 10 U/L (<34); BILIRUBIN,TOTAL 0.9 MG/DL (0.3-1.2); BLOOD UREA NITROGEN 11 MG/DL (9-23); CALCIUM LEVEL 9.3 MG/DL (8.5-10.1); CARBON DIOXIDE LEVEL 30 MMOL/L (20-31); CHLORIDE LEVEL 108 MMOL/L (98-107); CREATININE FOR GFR 1.12 MG/DL (0.70-1.30); GLOMERULAR FILTRATION RATE > 60.0 (>60); GLUCOSE, FASTING 78 MG/DL (60-100); POTASSIUM SERUM 4.6 MMOL/L (3.5-5.1); SODIUM LEVEL 139 MMOL/L (136-145); TOTAL PROTEIN 6.7 G/DL (5.7-8.2)
== END ==
LOC: M PLALAB 11:05
PROVIDERS: ATTEND Student in an Organized Health Care Education/Training Program
DX: R11.10 Vomiting, unspecified (principal); R07.9 Chest pain, unspecified; R10.9 Unspecified abdominal pain

== ENCOUNTER 2024-04-17 08:34 | Day surgery (SDC) | payer OTHER ==
[~2024-04-17] VITALS: Ht 176.5 cm; Wt 67.6 kg
[~2024-04-17 08:34] MED LIST changes: +ALBU8.5H; +ALBU8.5H INH; +FAMO40TA3 PO; +LIDOCAINE 2% 100MG/5ML SDV (FOR ANES.) As Ordered ONE; +propofoL 200 MG/20 ML VIAL As Ordered ONE
[2024-04-17] MEDS ORDERED: fentaNYL 100 MCG/2 ML INJECTION As Ordered ONE (09:41)
[2024-04-17] MEDS ORDERED: GLYCOPYRROLATE INJ 0.2 MG/ML 2 ML VIAL As Ordered ONE (09:54)
[2024-04-17] MEDS ORDERED: ePHEDrine SULFATE 25 MG/5 ML(5MG/ML) SYRINGE As Ordered ONE (10:03)
[2024-04-17 10:14] VITALS: TEMP 98
[2024-04-17 10:35] VITALS: BP 116/75; O2SAT 98
== END 2024-04-17 10:50 | disposition home or self-care (01) ==
LOC: M OPP 08:34
PROVIDERS: ATTEND Surgery
DX: Z12.11 Encounter for screening for malignant neoplasm of colon (principal); K63.5 Polyp of colon; K21.00 Gastro-esophageal reflux disease with esophagitis, without bleeding; K44.9 Diaphragmatic hernia without obstruction or gangrene; K29.50 Unspecified chronic gastritis without bleeding; K31.89 Other diseases of stomach and duodenum; R10.13 Epigastric pain; Z86.0100 Personal history of colon polyps, unspecified; Z87.19 Personal history of other diseases of the digestive system; R63.4 Abnormal weight loss; J44.9 Chronic obstructive pulmonary disease, unspecified; F17.210 Nicotine dependence, cigarettes, uncomplicated; Z79.899 Other long term (current) drug therapy
CPT/HCPCS: 43239; 45385; 88305; J1596; J3010

== ENCOUNTER 2024-09-02 15:28 | Emergency (ER) | payer OTHER ==
[~2024-09-02] VITALS: Ht 175.3 cm; Wt 66.9 kg
[~2024-09-02 15:28] MED LIST changes: -LIDOCAINE 2% 100MG/5ML SDV (FOR ANES.) As Ordered ONE; -propofoL 200 MG/20 ML VIAL As Ordered ONE
[2024-09-02] MEDS ORDERED: METH-1165 PO (20:29)
[2024-09-02] MEDS ORDERED: MEDR4PAK PO (20:29)
[2024-09-02] MEDS: ACETAMINOPHEN 500 MG TAB PO ONE (20:32)
[2024-09-02] MEDS: diazePAM 5MG TABLET PO ONE (20:33)
[2024-09-02] MEDS: KETOROLAC 30 MG/ML 1ML VIAL IM ONE (20:33)
[2024-09-02 21:00] VITALS: BP 131/71; TEMP 97.8; O2SAT 97
== END 2024-09-02 21:01 | disposition home or self-care (01) ==
LOC: M ED 15:28
DX: M54.50 Low back pain, unspecified (principal); J45.909 Unspecified asthma, uncomplicated; F17.200 Nicotine dependence, unspecified, uncomplicated; F12.10 Cannabis abuse, uncomplicated; Z79.52 Long term (current) use of systemic steroids; Z79.899 Other long term (current) drug therapy
CPT/HCPCS: 96372; 99283; J1885

== ENCOUNTER 2025-03-24 16:52 | Emergency (ER) | payer OTHER ==
[~2025-03-24] VITALS: Ht 175.3 cm; Wt 63.6 kg
[~2025-03-24 16:52] MED LIST changes: -IBUP-1022 PO; +IBUP600T42 PO; +LIDO1ADH93 TD; -LIDO5DIS41 TD; +MEDR4PAK PO; +METH-1165 PO
[2025-03-24 17:01] VITALS: BP 148/70; TEMP 97.7; O2SAT 100
== END 2025-03-24 17:29 | disposition left against medical advice (07) ==
LOC: EDBD 16:52 → M ED 16:52
DX: Z53.21 Procedure and treatment not carried out due to patient leaving prior to being seen by health care provider (principal)